=== PATIENT | female | born 1940 | race Caucasian/White ===

== ENCOUNTER → 2016-08-20 | Outpatient (CLI) | payer MEDICARE, OTHER ==
[~2016-08-20] MED LIST: ACET-2469 PO; CEFU500T PO; CEPH250T PO; CLIN-62 PO; CLIN150C17 PO; FLC100T1 PO; HYDR-3874 PO; L.AC1CAP6 PO; LEVO500T69 PO; LVT.088T PO
--- NOTE | 2016-08-21 20:23 | Diagnostic Imaging Report ---
Left breast mammogram. The current study was also evaluated with a Computer Aided Detection (CAD) system. COMPARISON: 06/20/2015. INDICATION: Screening. The patient has had breast cancer status post mastectomy on the right side. FINDINGS: The left breast parenchyma is heterogeneously dense with associated scattered benign-appearing calcifications. No developing mass, architectural distortion, or suspicious cluster of calcification. Allowing for technique and positional differences, no suspicious change is seen. IMPRESSION: No significant change. ACR BI-RADS Category 2: Benign findings. Result letter will be mailed to the patient. Note: At least 10% of breast cancer is not imaged by mammography. Dictated by: Dictated on workstation # [id number]
== END ==
LOC: RAD 12:18
PROVIDERS: ATTEND Nurse Practitioner Family
DX: Z12.31 Encounter for screening mammogram for malignant neoplasm of breast (principal)

== ENCOUNTER 2016-11-22 10:17 | Outpatient (RCR) | payer MEDICARE, OTHER ==
[2016-11-21 14:24] LABS: MEAN PLATELET VOLUME 10.5 FL (7.4-10.4); RED BLOOD COUNT 4.42 10^6/uL (4.35-5.85); RED CELL DISTRIBUTION WIDTH 13.3 % (10.0-14.5); WHITE BLOOD COUNT 5.4 10^3/uL (4.3-11.0)
[2016-11-21 14:50] LABS: ALBUMIN 4.5 G/DL (3.2-4.5); BILIRUBIN,TOTAL 0.3 MG/DL (0.1-1.0); CALCIUM 9.1 MG/DL (8.5-10.1); CREATININE SERUM 1.27 MG/DL (0.60-1.30); POTASSIUM 4.2 MMOL/L (3.6-5.0); TOTAL PROTEIN 7.6 G/DL (6.4-8.2)
--- NOTE | 2016-11-21 16:40 | Diagnostic Imaging Report ---
PROCEDURE: CT abdomen and pelvis without contrast. TECHNIQUE: Multiple contiguous axial images were obtained through the abdomen and pelvis without the use of intravenous contrast. INDICATION: Abdominal pain. COMPARISON: No priors. FINDINGS: The lung bases are nonacute. The unopacified liver, gallbladder, bile ducts are unremarkable. Nonfocal spleen is normal in size. Low-density nodule measures fluid density and is presumed cyst, medially oriented, upper pole left kidney, 1.6 cm. There are no opaque kidney stones. There is no hydronephrosis. No perinephric edema. The adrenals and pancreas are unremarkable. The aorta is nonaneurysmal. The appendix is normal. There are noninflamed diverticuli of the sigmoid colon. There is no bowel, biliary or urinary tract obstruction. There is no ascites, abscess, hematoma or other fluid collection. No anterior-abdominal wall defect or fluid collection. There is no focal inflammatory process or ascites. IMPRESSION: Noninflamed diverticulosis, left renal cortical cyst. No acute-appearing abdominal-pelvic abnormality. Dictated by: Dictated on workstation # [id number]
== END 2017-02-19 | disposition home or self-care (01) ==
LOC: RAD 10:17
PROVIDERS: ATTEND Nurse Practitioner
DX: K57.30 Diverticulosis of large intestine without perforation or abscess without bleeding (principal); N28.1 Cyst of kidney, acquired
CPT/HCPCS: 36415; 74176; 80053; 82565; 84520; 85027; 87045; 87046

== ENCOUNTER → 2017-08-26 | Outpatient (CLI) | payer MEDICARE, OTHER ==
[~2017-08-26] MED LIST changes: +HYDR-3870 PO; -HYDR-3874 PO
--- NOTE | 2017-08-26 18:53 | Diagnostic Imaging Report ---
INDICATION: Routine screening. COMPARISON: Comparison is made with prior study from 08/20/2016 and 06/20/2015. The current study was also evaluated with a Computer Aided Detection (CAD) system. FINDINGS: Moderate parenchymal heterogeneity and increased density is noted, limiting the sensitivity of mammography. The parenchymal pattern appears stable. No dominant mass or malignant appearing microcalcifications are seen. There are benign calcifications in the left breast. The left axilla is unremarkable. IMPRESSION: No mammographic features suspicious for malignancy are identified. ACR BI-RADS Category 2: Benign findings. Result letter will be mailed to the patient. Note: At least 10% of breast cancer is not imaged by mammography. Dictated by: Dictated on workstation # [id number]
== END ==
LOC: RAD 12:16
PROVIDERS: ATTEND Nurse Practitioner Family
DX: Z12.31 Encounter for screening mammogram for malignant neoplasm of breast (principal)

== ENCOUNTER → 2018-06-11 | Outpatient (CLI) | payer MEDICARE, OTHER ==
--- NOTE | 2018-06-11 09:46 | Diagnostic Imaging Report ---
PROCEDURE: CT cervical spine without contrast. TECHNIQUE: Multiple contiguous axial images were obtained through the cervical spine without the use of intravenous contrast. Sagittal and coronal reformations were then performed. INDICATION: Palpable nodule of one year's duration posteriorly on the right. Pain radiating down the right shoulder. History of breast cancer. FINDINGS: Noncontrast enhanced CT of the cervical spine performed. Surface marker is placed in the right neck at the region of palpable fullness. Deep to the palpable abnormality is a fatty nodule compatible with incidental lipoma in the right neck posteriorly measuring 3.3 cm transverse x 2.1 cm AP and extending a cephalocaudal length of 3.8 cm. It is encapsulated, simple and showed no soft tissue component or complexity. Reconstruction views revealed normal cervical body heights aligned anatomically. No bony destruction, fracture or dislocation. There is no appreciable canal or foraminal stenosis. No paravertebral soft tissue density, mass or fluid collection. Skull base appeared unremarkable. Prevertebral and retropharyngeal spaces are unremarkable. Visualized pulmonary apices show some partly calcified chronic pleural parenchymal scarring and air trapping greater right, chronic. IMPRESSION: Simple lipoma in the right neck corresponds to the palpable nodularity. Cervical spine showed no fracture, malalignment or stenosis. Dictated by: Dictated on workstation # [id number]
== END ==
LOC: RAD 08:56
PROVIDERS: ATTEND Surgery
DX: D17.0 Benign lipomatous neoplasm of skin and subcutaneous tissue of head, face and neck (principal); Z85.3 Personal history of malignant neoplasm of breast
CPT/HCPCS: 72125

== ENCOUNTER 2018-06-25 05:35 | Outpatient (CLI) | payer MEDICARE, OTHER ==
[~2018-06-25] VITALS: Ht 170.2 cm; Wt 73.5 kg
[2018-06-25] MEDS ORDERED: LEVO88TA54 PO (08:44)
[2018-06-25] MEDS ORDERED: HYDR200T78 PO (08:44)
[2018-06-25] MEDS ORDERED: TERB250T16 PO (08:44)
== END 2018-06-25 08:50 | disposition home or self-care (01) ==
LOC: PREOP 05:35
PROVIDERS: ATTEND Surgery
DX: Z01.818 Encounter for other preprocedural examination (principal)
CPT/HCPCS: 87081

== ENCOUNTER 2018-07-02 06:00 | Day surgery (SDC) | payer MEDICARE, OTHER ==
[~2018-07-02] VITALS: Ht 170.2 cm; Wt 73.5 kg
[~2018-07-02 06:00] MED LIST changes: +HYDR200T78 PO; +LEVO88TA54 PO; +TERB250T16 PO
[2018-07-02] MEDS ORDERED: LACTATED RINGERS 1,000 ML IV PRN (06:14)
[2018-07-02] MEDS ORDERED: CLINDAMYCIN 600 MG/50 ML IVPB 50 ML IV ONE (06:15)
[2018-07-02 06:20] VITALS: BP 144/78
[2018-07-02] MEDS ORDERED: fentaNYL INJECTION 100 MCG/2 ML AMP ONE (06:45)
[2018-07-02] MEDS ORDERED: MIDAZOLAM 2 MG/2 ML (VERSED) VIAL ONE (06:45)
[2018-07-02] MEDS ORDERED: LIDOCAINE PF 2% 5 ML (XYLOCAINE) VIAL ONE (06:45)
[2018-07-02] MEDS ORDERED: SEVOFLURANE (ULTANE) 15 ML INHAL SOLN ONE ×2 (06:45→08:28)
[2018-07-02] MEDS ORDERED: DEXAMETHASONE 10 MG/ML (DECADRON) 1 ML VIAL ONE (06:45)
[2018-07-02] MEDS ORDERED: ONDANSETRON 4 MG/2 ML (SDV) Z0FRAN ONE ×2 (06:45→09:10)
[2018-07-02] MEDS ORDERED: proPOfol 200 MG/20 ML (DIPRIVAN) VIAL IV ONE (06:45)
[2018-07-02] MEDS ORDERED: LIDOCAINE 1% INJ 20 ML 20 ML VIAL ONE (07:22)
[2018-07-02] MEDS ORDERED: BUPIVACAINE 0.5% 30 ML (SENSORCAINE) VIAL ONE (07:22)
--- NOTE | 2018-07-02 07:59 | Progress Note-Pre Operative ---
Pre-Operative Progress Note H&P Reviewed The H&P was reviewed, patient examined and no changes noted. Date Seen by Provider: Jul 02, 2018 Time Seen by Provider: 07:58 Date H&P Reviewed: Jul 02, 2018 Time H&P Reviewed: 07:58 Pre-Operative Diagnosis: lipoma upper back DARIO AVILA DO Jul 02, 2018 07:59
--- NOTE | 2018-07-02 08:25 | Progress Note-Post Operative ---
Post-Operative Progess Note Surgeon (s)/Rehanger (s) Surgeon DARIO AVILA DO Rehanger: na Pre-Operative Diagnosis lipoma upper back Post-Operative Diagnosis same Procedure & Operative Findings Date of Procedure 07/02/18 Procedure Performed/Findings excision lipoma right upper back Anesthesia Type gen Estimated Blood Loss Estimated blood loss (mL): min Specimens/Packing Specimens Removed lipoma DARIO AVILA DO Jul 02, 2018 08:25
[2018-07-02] MEDS ORDERED: ACHD5005 PO (08:26)
--- NOTE | 2018-07-02 08:27 | Discharge Inst-Simple/Standard ---
Discharge Inst-Standard Discharge Medications New, Converted or Re-Newed RX: RX on Chart Patient Instructions/Follow Up Plan of Care/Instructions/FU: 2 weeks Claire Activity as Tolerated: No Discharge Diet: Regular Diet Other Inst to Patient Follow up Appt: Make appointment for 2 week. Instructions: No lifting greater than 10 pounds. No strenuous activity. May shower in 24 hours, no tub bath or soaking. Use incentive spirometer at home as directed. No Smoking Skin/Wound Care: You have special glue over incision it will fall off on its own. Symptoms to Report: Appetite Changes, Extremity Discoloration, Numbness/Tingling, Swelling Increased , Bleeding Excessive, Eyesight Changes, Pain Increased, Urine Color Change, Constipation(Persistent), Fever over 101 degree F, Pain/Pressure in chest, Urinating Difficulty, Cough Up/Vomit Blood, Heart Beat Irreg/Pounding, Pain/ Pressure in jaw, Vaginal Bleeding Increase, Cramps in feet or legs, Lightheadedness, Pain/Pressure in shoulder, Diarrhea(Persistent), Memory Changes Suddenly, Questions/Concerns, Weight gain consecutive days, Dizziness/ Fainting, Nausea/Vomiting, Shortness of Breath, Weight gain over 2 pounds If questions or concerns contact your physician Or seek help at emergency department. DARIO CLAIRE DO Jul 02, 2018 08:27
[2018-07-02] MEDS ORDERED: morphine INJ 10 MG/ML 1ML (SYR OR VIAL) IVP ONE (09:00)
[2018-07-02] MEDS ORDERED: ONDANSETRON 4 MG/2 ML (SDV) Z0FRAN IVP PRN (09:00)
[2018-07-02 09:30] VITALS: BP 144/78
[2018-07-02 09:31] VITALS: BP 125/64
[2018-07-02 10:00] VITALS: BP 123/54
[2018-07-02 10:30] VITALS: BP 130/59
--- NOTE | 2018-07-02 12:09 | Anesthesia-General Post-Op ---
General Patient Condition Mental Status/LOC: Same as Preop Cardiovascular: Satisfactory Nausea/Vomiting: Absent Respiratory: Satisfactory Pain: Controlled Complications: Absent Post Op Complications Complications None Follow Up Care/Instructions Patient Instructions None needed. Anesthesia/Patient Condition Patient Condition Patient is doing well, no complaints, stable vital signs, no apparent adverse anesthesia problems. No complications reported per nursing. [place] [facility] [place] Yes ARYAN ROSALES CRNA Jul 02, 2018 12:09
--- NOTE | 2018-07-02 13:24 | OPERATIVE REPORT ---
DATE OF SERVICE: 07/02/2018 PREOPERATIVE DIAGNOSIS: Lipoma, upper back. POSTOPERATIVE DIAGNOSIS: Lipoma, upper back. PROCEDURE: Excision of lipoma, right upper back, 4 cm incision. SURGEON: Dario Claire DO. ANESTHESIA: General. ESTIMATED BLOOD LOSS: Minimal. COMPLICATIONS: None. INDICATIONS: The patient is a 78-year-old female with lipoma of the right upper back and lower neck area. She understands the risks and benefits of the procedure and wished to proceed with procedure. Consent was signed on the chart. DESCRIPTION OF PROCEDURE: The patient was taken to the operating suite. She was prepped and draped in a sterile fashion. Surgical pause was performed. Local anesthetic was infiltrated in the area. A 15-blade scalpel was used to make a skin incision. Cautery was used to dissect down through the subcutaneous tissues and the lipoma was encountered. This was evacuated. The wound was then irrigated with copious amounts of irrigation. The skin was then closed using a 4-0 Vicryl in a running subcuticular fashion. The area was then washed and dried and Skin Affix was placed over the incision. The patient tolerated the procedure well without any complications. She was taken to the recovery room in stable condition. Job ID: [id number] DocumentID: [id number] Dictated Date: 07/02/2018 08:36:46 Colorectal Surgeon Date: 07/02/2018 13:23:49 Dictated By: DARIO CLAIRE DO
== END 2018-07-02 10:40 | disposition home or self-care (01) ==
LOC: SDC 06:00
PROVIDERS: ATTEND Surgery
DX: D17.1 Benign lipomatous neoplasm of skin and subcutaneous tissue of trunk (principal); E03.9 Hypothyroidism, unspecified; G57.93 Unspecified mononeuropathy of bilateral lower limbs; Z87.891 Personal history of nicotine dependence; Z79.899 Other long term (current) drug therapy

== ENCOUNTER → 2018-08-19 | Outpatient (CLI) | payer MEDICARE, OTHER ==
[~2018-08-19] MED LIST changes: +ACHD5005 PO
--- NOTE | 2018-08-19 15:37 | Diagnostic Imaging Report ---
EXAMINATION: Supine abdomen at 02:41 a.m. INDICATION: Abdominal pain. FINDINGS: The CT abdomen/pelvis exam of 11/21/2016 failed to show any sign of nephrolithiasis or urolithiasis. On this exam, there is still evidence for calcification overlying the kidneys or the expected path of the ureters. There are few small calcific densities on each side of the low pelvis. I suspect that these are phleboliths, as they were present on the prior CT exam. However, if there is clinical concern regarding ureteral stones, then repeat CT abdomen/pelvis exam should be obtained. There is gas in both the large and small bowel in a nonspecific fashion. There is no evidence for bowel obstruction. There is a fair amount of fecal material throughout the colon. There is no mass or organomegaly noted. The osseous structures are intact. IMPRESSION: 1. There is no evidence for nephrolithiasis or urolithiasis. 2. The calcifications on each side of the low pelvis are more likely due to phleboliths than to ureteral stones. Recommendations as above. Dictated by: Dictated on workstation # [id number]
== END ==
LOC: RAD 14:32
PROVIDERS: ATTEND Nurse Practitioner Family
DX: N28.89 Other specified disorders of kidney and ureter (principal); R10.31 Right lower quadrant pain
CPT/HCPCS: 74018

== ENCOUNTER → 2018-09-01 | Outpatient (CLI) | payer MEDICARE, OTHER ==
--- NOTE | 2018-09-01 22:00 | Diagnostic Imaging Report ---
INDICATION: Routine screening. Comparison is made with prior mammogram from 08/26/2017 and 08/20/2016. 2-D and 3-D unilateral left screening mammography was performed with a Computer Aided Detection (CAD) system. FINDINGS: Left breast is heterogeneously dense, limiting the sensitivity of mammography. The parenchymal pattern is stable. No mass or malignant appearing microcalcifications are seen. There are benign parenchymal and vascular calcifications noted. Left axilla is unremarkable. IMPRESSION: No mammographic features suspicious for malignancy are identified. ACR BI-RADS Category 2: Benign findings. Result letter will be mailed to the patient. Note: At least 10% of breast cancer is not imaged by mammography. Dictated by: Dictated on workstation # [id number]
== END ==
LOC: RAD 08:28
PROVIDERS: ATTEND Nurse Practitioner Family
DX: Z12.31 Encounter for screening mammogram for malignant neoplasm of breast (principal)

== ENCOUNTER → 2019-05-27 | Outpatient (CLI) | payer MEDICARE, OTHER ==
[~2019-05-27] MED LIST changes: -ACET-2469 PO; +ACET-2715 PO; +PANT40TA2 PO; +PRD20T PO
--- NOTE | 2019-05-27 16:56 | Diagnostic Imaging Report ---
INDICATION: Bilateral hand pain. AP, oblique, and lateral views of both hands are obtained. No fracture or acute bony abnormality is seen. There is mild degenerative change throughout the interphalangeal joints. There is moderate degenerative change of the first carpometacarpal joint on both sides. There is mild degenerative change of the radiocarpal joint on both sides. There is mild degenerative change of the first MCP joint on both sides. IMPRESSION: Degenerative findings of both hands as above with no acute abnormality. Dictated by: Dictated on workstation # [id number]
== END ==
LOC: RAD 12:19
PROVIDERS: ATTEND Internal Medicine Rheumatology
DX: M19.042 Primary osteoarthritis, left hand (principal); M19.041 Primary osteoarthritis, right hand

== ENCOUNTER 2019-07-27 09:53 | Emergency (ER) | payer MEDICARE, OTHER ==
[~2019-07-27] VITALS: Ht 170.1 cm; Wt 72.7 kg
[~2019-07-27 09:53] MED LIST changes: -PANT40TA2 PO; -PRD20T PO
[2019-07-27 10:35] VITALS: BP 142/78
[2019-07-27] MEDS ORDERED: SALIVA SUBSTITUTE 60 ML SPRAY(MOUTHKOTE) MM PRN (11:00)
[2019-07-27] MEDS ORDERED: KETOROLAC 30 MG/ML VIAL IVP ONE (11:00)
--- NOTE | 2019-07-27 11:05 | ED General ---
General Chief Complaint: General Problems/Pain Stated Complaint: WEAKNESS;L ARM/R SHOULDER PAIN;DRY MOUTH Nursing Triage Note: TO ED PER W/C REPORTS SINCE FRIDAY HAS HAS L ELBOW PAIN R KNEE AND L AND R GROIN PAIN NO INJURY. TOOK TYLENOL LAST NIGHT. Nursing Sepsis Screen: No Definite Risk Source of Information: Patient Exam Limitations: No Limitations History of Present Illness Date Seen by Provider: Jul 27, 2019 Time Seen by Provider: 11:00 Initial Comments To ER with left elbow pain, right knee pain, bilateral groin pain and right shoulder pain. The symptoms began about 2-3 days ago. She was recently diagnosed with RA by [employer] commerce consultant with the satellite [facility] here in [place], however, has not started any medication for this. She also complains of a very dry mouth. She denies fevers chills cough sore throat runny nose. Timing/Duration: 1-2 Days Severity: Moderate Allergies and Home Medications Allergies Coded Allergies: Penicillins (Verified Allergy, Unknown, ANAPHYLAXIS, 06/25/18) sulfamethoxazole (Verified Allergy, Unknown, 04/13/15) trimethoprim (Verified Allergy, Unknown, 04/13/15) Home Medications Acetaminophen/Diphenhydramine 1 Each Tablet, 1 EACH PO HS, (Reported) Hydrocodone Bit/Acetaminophen 1 Tab Tab, 1 TAB PO Q4-6HR Prescribed by: DARIO AVILA on 07/02/18 0826 Hydroxychloroquine Sulfate 200 Mg Tablet, 200 MG PO DAILY, (Reported) Levothyroxine Sodium 88 Mcg Tablet, 88 MCG PO DAILY, (Reported) Terbinafine HCl 250 Mg Tablet, 250 MG PO DAILY, (Reported) Patient Home Medication List Home Medication List Reviewed: Yes Review of Systems Review of Systems Constitutional: see HPI; No chills, No fever EENTM: see HPI, other (dry mouth) Respiratory: no symptoms reported Genitourinary: no symptoms reported Musculoskeletal: see HPI, joint pain Skin: no symptoms reported Psychiatric/Neurological: No Symptoms Reported Hematologic/Lymphatic: No Symptoms Reported Past Gtjtgyx-Ebofxd-Zrlblj Hx Patient Social History Alcohol Use: Denies Use Recreational Drug Use: No Smoking Status: Never a Smoker Former Smoker, Quit: Jul 26, 1988 2nd Hand Smoke Exposure: No Recent Foreign Travel: No Contact w/Someone Who Travel: No Recent Infectious Disease Expo: No Recent Hopitalizations: No Immunizations Up To Date Tetanus Booster (TDap): Unknown PED Vaccines UTD: No Date of Influenza Vaccine: Mar 23, 2018 Seasonal Allergies Seasonal Allergies: No Past Medical History Surgeries: Yes (mastectomy, ) Oophorectomy, Tubal Ligation Respiratory: No Cardiac: No Neurological: No Reproductive Disorders: No Sexually Transmitted Disease: No HIV/AIDS: No Genitourinary: No UTI-Chronic Gastrointestinal: Yes Diverticulosis Musculoskeletal: Yes Rheumatoid Arthritis Endocrine: Yes Hypothyroidsim HEENT: No Cancer: Yes Breast What Type of Treatment Did You: Surgical Intervention Psychosocial: No Integumentary: Yes (ROSACIA) Blood Disorders: No Family Medical History No Pertinent Family Hx Physical Exam Vital Signs Vital Signs - First Documented 07/27/19 10:35 Temp 36.8 Pulse 70 Resp 18 B/P (MAP) 142/78 (99) Pulse Ox 97 Capillary Refill : Less Than 3 Seconds Height, Weight, BMI Height: 5'7.00" Weight: 162lbs. 0.0oz. 73.699337hv; 25.00 BMI Method:Stated General Appearance: No Apparent Distress, WD/WN Eyes: Bilateral Eye Normal Inspection, Bilateral Eye PERRL, Bilateral Eye EOMI HEENT: PERRL/EOMI, TMs Normal Neck: Full Range of Motion, Normal Inspection Respiratory: No Accessory Muscle Use, No Respiratory Distress Gastrointestinal: Non Tender, Soft Extremity: Normal Capillary Refill, Normal Inspection, Other (no joint effusion to any of the affected joints. no erythema or warmth. ) Neurologic/Psychiatric: Alert, Oriented x3 Skin: Normal Color, Warm/Dry Progress/Results/Core Measures Suspected Sepsis Recent Fever Within 48 Hours: No Infection Criteria Present: None New/Unexplained Altered Menta: No Sepsis Screen: No Definite Risk SIRS Temperature: Pulse: 70 Respiratory Rate: 18 Laboratory Tests 07/27/19 11:15: White Blood Count 7.6 Blood Pressure 142 /78 Mean: 99 Laboratory Tests 07/27/19 11:15: Creatinine 0.91, Platelet Count 206 Results/Orders Lab Results Laboratory Tests Test 07/27/19 11:15 Range/Units White Blood Count 7.6 4.3-11.0 10^3/uL Red Blood Count 4.35 4.35-5.85 10^6/uL Hemoglobin 13.1 11.5-16.0 G/DL Hematocrit 41 35-52 % Mean Corpuscular Volume 93 80-99 FL Mean Corpuscular Hemoglobin 30 25-34 PG Mean Corpuscular Hemoglobin Concent 32 32-36 G/DL Red Cell Distribution Width 13.6 10.0-14.5 % Platelet Count 206 130-400 10^3/uL Mean Platelet Volume 10.3 7.4-10.4 FL Neutrophils (%) (Auto) 80 H 42-75 % Lymphocytes (%) (Auto) 11 L 12-44 % Monocytes (%) (Auto) 8 0-12 % Eosinophils (%) (Auto) 1 0-10 % Basophils (%) (Auto) 0 0-10 % Neutrophils # (Auto) 6.1 1.8-7.8 X 10^3 Lymphocytes # (Auto) 0.9 L 1.0-4.0 X 10^3 Monocytes # (Auto) 0.6 0.0-1.0 X 10^3 Eosinophils # (Auto) 0.1 0.0-0.3 10^3/uL Basophils # (Auto) 0.0 0.0-0.1 10^3/uL Erythrocyte Sedimentation Rate 30 0-30 MM/HR Sodium Level 139 135-145 MMOL/L Potassium Level 4.4 3.6-5.0 MMOL/L Chloride Level 106 98-107 MMOL/L Carbon Dioxide Level 24 21-32 MMOL/L Anion Gap 9 5-14 MMOL/L Blood Urea Nitrogen 11 7-18 MG/DL Creatinine 0.91 0.60-1.30 MG/DL Estimat Glomerular Filtration Rate 60 BUN/Creatinine Ratio 12 Glucose Level 108 H 70-105 MG/DL Calcium Level 9.1 8.5-10.1 MG/DL C-Reactive Protein High Sensitivity 6.58 H 0.00-0.50 MG/DL My Orders Orders - MADELYN DOUGHERTY APRN Cbc With Automated Diff (07/27/19 10:55) Basic Metabolic Panel (07/27/19 10:55) Erythrocyte Sedimentation Rate (07/27/19 10:55) Hs C Reactive Protein (07/27/19 10:55) Ed Iv/Invasive Line Start (07/27/19 10:55) Ketorolac Injection (Toradol Injection) (07/27/19 11:00) Saliva Substitute (Mouthkote Solution) (07/27/19 11:00) Saliva Stimulant Mouth [place] (Biotene Mo (07/27/19 11:15) Medications Given in ED Current Medications Medications Dose Ordered Sig/Jimmy Route Start Time Stop Time Status Last Admin Dose Admin Ketorolac Tromethamine 15 mg ONCE ONCE IVP 07/27/19 11:00 07/27/19 11:01 DC 07/27/19 11:18 15 MG Saliva Substitute SPRAY DIRECTLY IN MO... NEEDED PRN MM 07/27/19 11:15 07/27/19 11:18 1 EACH Vital Signs/I&O 07/27/19 07/27/19 10:35 11:18 Temp 36.8 36.8 Pulse 70 Resp 18 B/P (MAP) 142/78 (99) Pulse Ox 97 Capillary Refill : Less Than 3 Seconds Blood Pressure Mean: 99 Departure Communication (Admissions) handwritten rx for steroid taper and protonix Impression Primary Impression: Polyarthralgia Disposition: HOME, SELF-CARE Condition: Stable Departure-Patient Inst. Decision time for Depature: 11:30 Referrals: JESSE DURAN MD (PCP/Family) Primary Care Physician Patient Instructions: ARTHRALGIA Add. Discharge Instructions: 1. Steroids as directed 2. Return to ER for any concerns 3. Follow-up with your doctor next week All discharge instructions reviewed with patient and/or family. Voiced understanding. Scripts Pantoprazole Sodium (Protonix) 40 Mg Tablet.dr 40 MG PO DAILY, #10 TAB Prov: MADELYN DOUGHERTY APRN 07/27/19 Prednisone (Prednisone) 20 Mg Tab 20 MG PO DAILY, #11 TAB Take 3 tabs(60mg)daily, decrease by 1/2 tab(10mg)daily. Prov: MADELYN DOUGHERTY APRN 07/27/19 Copy Copies To 1: JESSE DURAN MD, PETER J APRN Jul 27, 2019 11:05
[2019-07-27] MEDS ORDERED: KETOROLAC 30 MG/ML VIAL ONE (11:06)
[2019-07-27] MEDS ORDERED: SALIVA STIMULANT MOUTH SPRAY (BIOTENE) 1.5 OZ MM PRN (11:15)
[2019-07-27 11:29] LABS: BASOPHILS % (AUTO) 0 % (0-10); EOSINOPHILS # (AUTO) 0.1 10^3/uL (0.0-0.3); EOSINOPHILS % (AUTO) 1 % (0-10); HEMATOCRIT 41 % (35-52); HEMOGLOBIN 13.1 G/DL (11.5-16.0); LYMPHOCYTES # (AUTO) 0.9 X 10^3 (1.0-4.0); LYMPHOCYTES % (AUTO) 11 % (12-44); MEAN CORPUSCULAR HEMOGLOBIN 30 PG (25-34); MEAN CORPUSCULAR HGB CONC 32 G/DL (32-36); MEAN CORPUSCULAR VOLUME 93 FL (80-99); MEAN PLATELET VOLUME 10.3 FL (7.4-10.4); MONOCYTES # (AUTO) 0.6 X 10^3 (0.0-1.0); MONOCYTES % (AUTO) 8 % (0-12); NEUTROPHILS # (AUTO) 6.1 X 10^3 (1.8-7.8); NEUTROPHILS % (AUTO) 80 % (42-75); PLATELET COUNT 206 10^3/uL (130-400); RED CELL DISTRIBUTION WIDTH 13.6 % (10.0-14.5); WHITE BLOOD COUNT 7.6 10^3/uL (4.3-11.0)
[2019-07-27 11:52] LABS: CALCIUM 9.1 MG/DL (8.5-10.1); CREATININE SERUM 0.91 MG/DL (0.60-1.30); POTASSIUM 4.4 MMOL/L (3.6-5.0)
[2019-07-27 11:54] LABS: ERYTHROCYTE SEDIMENTATION RATE 30 MM/HR (0-30)
[2019-07-27] MEDS ORDERED: PRD20T PO (11:57)
[2019-07-27] MEDS ORDERED: PANT40TA2 PO (11:57)
== END 2019-07-27 12:05 | disposition home or self-care (01) ==
LOC: EDUNIT# 09:53 → ER 09:55
DX: M25.50 Pain in unspecified joint (principal); M06.9 Rheumatoid arthritis, unspecified; E03.9 Hypothyroidism, unspecified; Z85.3 Personal history of malignant neoplasm of breast; Z88.0 Allergy status to penicillin; Z88.2 Allergy status to sulfonamides; Z88.1 Allergy status to other antibiotic agents; Z87.891 Personal history of nicotine dependence
CPT/HCPCS: 36415; 80048; 85025; 85652; 86141

== ENCOUNTER → 2019-09-06 | Outpatient (CLI) | payer MEDICARE, OTHER ==
[~2019-09-06] MED LIST changes: +PANT40TA2 PO; +PRD20T PO
--- NOTE | 2019-09-07 13:43 | Diagnostic Imaging Report ---
INDICATION: Routine screening. COMPARISON: 09/01/2018 and 08/26/2017. TECHNIQUE: Unilateral left 2D and 3D screening mammography was performed with CAD. FINDINGS: The left breast remains heterogeneously dense, limiting the sensitivity of mammography. A circumscribed nodular density in the upper anterior left breast in the outer portion appears to be stable. There are benign calcifications in the left breast. No spiculated mass or malignant appearing microcalcifications are seen. The left axilla is unremarkable. IMPRESSION: No mammographic features suspicious for malignancy are identified. ACR BI-RADS Category 2: Benign findings. Result letter will be mailed to the patient. Note: At least 10% of breast cancer is not imaged by mammography. Dictated by: Dictated on workstation # [id number]
== END ==
LOC: RAD 14:26
PROVIDERS: ATTEND Nurse Practitioner Family
DX: Z12.31 Encounter for screening mammogram for malignant neoplasm of breast (principal)

== ENCOUNTER → 2020-09-06 | Outpatient (CLI) | payer MEDICARE, OTHER ==
[~2020-09-06] MED LIST changes: -ACET-2715 PO; +ACET-3075 PO; -CLIN150C17 PO; +CLIN150C18 PO
--- NOTE | 2020-09-06 16:02 | Diagnostic Imaging Report ---
INDICATION: Routine screening. COMPARISON: 09/06/2019 and 09/01/2018. TECHNIQUE: 2D and 3D unilateral left screening mammography was performed with CAD. FINDINGS: The left breast is heterogeneously dense, limiting the sensitivity of mammography. No mass or malignant appearing microcalcifications are seen. There are benign calcifications in the left breast. The left axilla is unremarkable. IMPRESSION: No mammographic features suspicious for malignancy are identified. ACR BI-RADS Category 2: Benign findings. Result letter will be mailed to the patient. Note: At least 10% of breast cancer is not imaged by mammography. Dictated by: Dictated on workstation # [id number]
== END ==
LOC: RAD 10:15
PROVIDERS: ATTEND Nurse Practitioner Family
DX: Z12.31 Encounter for screening mammogram for malignant neoplasm of breast (principal)
CPT/HCPCS: 77063

== ENCOUNTER 2020-12-19 10:09 | Outpatient (RCR) | payer MEDICARE | END 2021-01-10 15:39 | disposition home or self-care (01) | PROVIDERS: ATTEND Internal Medicine Rheumatology | DX: M25.511 Pain in right shoulder (principal) ==

== ENCOUNTER 2021-02-06 05:34 | Outpatient (CLI) | payer MEDICARE ==
[~2021-02-06] VITALS: Ht 170.2 cm; Wt 65.3 kg
[2021-02-06] MEDS ORDERED: METH2.5T PO (12:51)
[2021-02-06] MEDS ORDERED: L.AC1CAP6 PO (12:51)
[2021-02-06] MEDS ORDERED: C,E,1CAP PO (12:51)
== END 2021-02-06 14:23 | disposition home or self-care (01) ==
LOC: PREOP 05:34
PROVIDERS: ATTEND Surgery
DX: Z01.818 Encounter for other preprocedural examination (principal)

== ENCOUNTER 2021-02-13 07:25 | Day surgery (SDC) | payer MEDICARE ==
[~2021-02-13] VITALS: Ht 170.2 cm; Wt 65.3 kg
[~2021-02-13 07:25] MED LIST changes: +C,E,1CAP PO; +METH2.5T PO
[2021-02-13] MEDS ORDERED: GLYCOPYRROLATE 0.2 MG/ML (ROBINUL) 2 ML VIAL IJ ONE (07:26)
[2021-02-13] MEDS ORDERED: LACTATED RINGERS 1,000 ML IV STA (07:35)
[2021-02-13 07:40] VITALS: BP 128/86
[2021-02-13] MEDS ORDERED: PROPOFOL INJECTION 50 ML IV ONE (08:35)
[2021-02-13 09:10] VITALS: BP 102/58
[2021-02-13 09:15] VITALS: BP 113/58
--- NOTE | 2021-02-13 09:15 | Progress Note-Post Operative ---
Post-Operative Progess Note Surgeon (s)/Protective Signal Superintendent (s) Surgeon DARIO AVILA DO Protective Signal Superintendent: na Pre-Operative Diagnosis hx colon cancer, blood in stool Post-Operative Diagnosis Hepatic flexure diveritculi, sigmoid polyp, hemrroids. Procedure & Operative Findings Date of Procedure 02/13/21 Procedure Performed/Findings hepatic flexure cold bx, next to diverticuli. sigmoid hot bx/ polypectomy. Anesthesia Type per yard spotter Estimated Blood Loss Estimated blood loss (mL): scant Specimens/Packing Specimens Removed hepatic flexure, sigmoid polyp DARIO AVILA DO Feb 13, 2021 09:15
--- NOTE | 2021-02-13 09:21 | Anesthesia-General Post-Op ---
MAC Patient Condition Mental Status/LOC: Same as Preop Cardiovascular: Satisfactory Nausea/Vomiting: Absent Respiratory: Satisfactory Pain: Controlled Complications: Absent Post Op Complications Complications None Follow Up Care/Instructions Patient Instructions None needed. Anesthesiology Discharge Order Discharge Order Patient is doing well, no complaints, stable vital signs, no apparent adverse anesthesia problems. No complications reported per nursing. JOSE MANRIQUEZ CRNA Feb 13, 2021 09:21
--- NOTE | 2021-02-13 09:31 | Discharge Inst-Simple/Standard ---
Discharge Inst-Standard Patient Instructions/Follow Up Plan of Care/Instructions/FU: 2 weeks Alethea Activity as Tolerated: Yes Discharge Diet: Regular Diet (high fiber) DARIO AVILA DO Feb 13, 2021 09:31
[2021-02-13 09:45] VITALS: BP 110/79
[2021-02-13 10:00] VITALS: BP 110/79
--- NOTE | 2021-02-13 13:26 | OPERATIVE REPORT ---
DATE OF SERVICE: 02/13/2021 PREOPERATIVE DIAGNOSIS: History of colon cancer, blood in stool. POSTOPERATIVE DIAGNOSES: Hepatic flexure, diverticuli, sigmoid colon polyp and hemorrhoids. PROCEDURE: Colonoscopy hepatic flexure cold biopsy next to diverticuli, sigmoid hot biopsy polypectomy. SURGEON: Dario Claire DO ANESTHESIA: Per SWISS TYPE SCREW MACHINE OPERATOR. ESTIMATED BLOOD LOSS: Scant. COMPLICATIONS: None. INDICATIONS: The patient is an 81-year-old female who has a history of colon cancer. She is having some blood in her stools. She understands risks and benefits of procedure and wished to proceed with procedure. Consent was signed in the chart. DESCRIPTION OF PROCEDURE: The patient was taken to the endoscopy suite, placed in left lateral recumbent position. Timeout was performed. Digital rectal exam was performed noting some internal hemorrhoids. No palpable polyps, masses or ulcerations. Scope was inserted in the rectum, advanced all the way to cecum with minimal difficulty. Prep was adequate with irrigation and suction. Scope was then slowly retracted back. No polyps, masses or ulcerations within the cecum. Pandiverticulosis present. Scope was then slowly retracted back in the ascending colon. No polyps, masses or ulcerations. At the hepatic flexure, there was a diverticula with some irritation, which looked like a small ulceration. Maybe some recent bleeding. Biopsy of this area was obtained. A cold biopsy of the area was obtained. Scope was then slowly retracted back. No polyps, masses or ulcerations within the remainder of the transverse and descending colon. In the sigmoid colon, a small polyp was present, which hot biopsy polypectomy was performed. Scope was then continuously retracted back into the rectum where it was retroflexed noting the internal hemorrhoids. Scope was returned to its normal position, slowly withdrawn until completely removed. The patient tolerated procedure well without any complications. She was taken to recovery room in stable condition. RECOMMENDATIONS: The patient will follow up on pathology in 2 weeks. If any issues before that be seen at that time. I would recommend repeat colonoscopy on as needed basis. Job ID: [id number] DocumentID: [id number] Dictated Date: 02/13/2021 09:33:58 Print Operator Date: 02/13/2021 13:24:48 Dictated By: DARIO CLAIRE DO
== END 2021-02-13 10:00 | disposition home or self-care (01) ==
LOC: ENDO 07:25
PROVIDERS: ATTEND Surgery
DX: D12.5 Benign neoplasm of sigmoid colon (principal); K57.31 Diverticulosis of large intestine without perforation or abscess with bleeding; K64.8 Other hemorrhoids; K52.89 Other specified noninfective gastroenteritis and colitis; M06.9 Rheumatoid arthritis, unspecified; E07.9 Disorder of thyroid, unspecified; Z85.038 Personal history of other malignant neoplasm of large intestine; Z79.899 Other long term (current) drug therapy; Z79.890 Hormone replacement therapy; Z87.891 Personal history of nicotine dependence
CPT/HCPCS: 88305

== ENCOUNTER → 2021-05-14 | Outpatient (CLI) | payer MEDICARE ==
[~2021-05-14] MED LIST changes: -CLIN150C18 PO; +CLIN150C20 PO; -TERB250T16 PO; +TERB250T88 PO
[2021-05-14 12:49] LABS: HEMATOCRIT 43 % (35-52); HEMOGLOBIN 14.1 g/dL (11.5-16.0); MEAN CORPUSCULAR HEMOGLOBIN 33 pg (25-34); MEAN CORPUSCULAR HGB CONC 33 g/dL (32-36); MEAN CORPUSCULAR VOLUME 101 fL (80-99); MEAN PLATELET VOLUME 10.6 fL (9.0-12.2); PLATELET COUNT 141 10^3/uL (130-400); WHITE BLOOD COUNT 7.9 10^3/uL (4.3-11.0)
--- NOTE | 2021-05-14 13:02 | Diagnostic Imaging Report ---
INDICATION: Right elbow pain COMPARISON: None. FINDINGS: 3 views of the right elbow show no fractures, dislocations, or other acute bony abnormalities identified. Joint spaces are well maintained throughout. The soft tissues appear unremarkable. No radiopaque foreign bodies are identified. IMPRESSION: No acute fractures or dislocations of the right elbow. Dictated by: Dictated on workstation # [id number]
[2021-05-14 13:09] LABS: CALCIUM 9.4 MG/DL (8.5-10.1); CREATININE SERUM 1.01 MG/DL (0.60-1.30); POTASSIUM 5.5 MMOL/L (3.6-5.0); URIC ACID 5.5 MG/DL (2.6-7.2)
== END ==
LOC: RAD 12:26
PROVIDERS: ATTEND Nurse Practitioner Family
DX: M25.521 Pain in right elbow (principal)
CPT/HCPCS: 36415; 73080; 80048; 84550; 85027

== ENCOUNTER → 2021-05-22 | Outpatient (CLI) | payer MEDICARE ==
[2021-05-22 12:40] LABS: CALCIUM 9.1 MG/DL (8.5-10.1)
[2021-05-22 12:44] LABS: CREATININE SERUM 0.94 MG/DL (0.60-1.30)
== END ==
LOC: LAB 12:10
PROVIDERS: ATTEND Family Medicine
DX: E87.5 Hyperkalemia (principal)
CPT/HCPCS: 36415; 80048

== ENCOUNTER 2021-07-19 16:38 | Inpatient (IN) | payer MEDICARE ==
[~2021-07-19] VITALS: Ht 170 cm; Wt 65.8 kg
[2021-07-19] MEDS ORDERED: fentaNYL INJ 100 MCG/2 ML AMP ONE (16:55)
[2021-07-19] MEDS ORDERED: MIDAZOLAM 5 MG/5 ML (VERSED) VIAL ONE (16:55)
[2021-07-19] MEDS ORDERED: LIDOCAINE 1% INJ 20 ML VIAL ONE (16:56)
[2021-07-19] MEDS ORDERED: NITRO DRIP 25000 MCG/D5W 0 ML IV ONE (16:56)
[2021-07-19] MEDS ORDERED: HEParin 1000 UNIT/ML (10ML VIAL) FOR BOLUS ONE (16:56)
[2021-07-19] MEDS ORDERED: NS IV 1000 ML 1,000 ML ONE (16:56)
[2021-07-19] MEDS ORDERED: HEParin (CATH LAB) 2,000 ML IV ONE (16:56)
[2021-07-19 17:00] LABS: BASOPHILS % (AUTO) 0 % (0-10); EOSINOPHILS # (AUTO) 0.1 10^3/uL (0.0-0.3); EOSINOPHILS % (AUTO) 1 % (0-10); HEMATOCRIT 43 % (35-52); LYMPHOCYTES # (AUTO) 1.4 10^3/uL (1.0-4.0); LYMPHOCYTES % (AUTO) 13 % (12-44); MEAN CORPUSCULAR HEMOGLOBIN 33 pg (25-34); MEAN CORPUSCULAR HGB CONC 33 g/dL (32-36); MEAN CORPUSCULAR VOLUME 100 fL (80-99); MEAN PLATELET VOLUME 9.7 fL (9.0-12.2); MONOCYTES # (AUTO) 0.7 10^3/uL (0.0-1.0); MONOCYTES % (AUTO) 7 % (0-12); NEUTROPHILS % (AUTO) 78 % (42-75); PLATELET COUNT 250 10^3/uL (130-400); WHITE BLOOD COUNT 10.3 10^3/uL (4.3-11.0)
[2021-07-19] MEDS ORDERED: ASPIRIN 81 MG CHEW (CHILDREN'S ASA) PO ONE (17:00)
--- NOTE | 2021-07-19 17:05 | ED Chest Pain ---
General Stated Complaint: STEMI Source: patient, EMS Exam Limitations: no limitations History of Present Illness Date Seen by Provider: Jul 19, 2021 Time Seen by Provider: 16:46 Initial Comments Here by EMS with report of chest heaviness as well as arm heaviness that started approximately 45 minutes to 1 hour ago. EMS was summoned. EMS did give aspirin 324 mg p.o. as well as 1 nitroglycerin and Zofran 4 mg IV. She did have some nausea associated with this but denies sweating or breathing problems. She is currently being treated for urinary tract infection. She follows with Dr. Huang. Timing/Duration: 1 hour Severity/Quality: moderate, pressure Location: central Radiation: arms, shoulders Activities at Onset: none Prior CP/Workup: no prior chest pain ASA po CYLINDER BATCHER: Yes NTG SL CYLINDER BATCHER: Yes Associated Symptoms: No abdominal pain, No diaphoresis, No dizziness; nausea/vomiting; No shortness of breath; weakness Allergies and Home Medications Allergies Coded Allergies: Penicillins (Verified Allergy, Severe, ANAPHYLAXIS, 02/13/21) sulfamethoxazole (Verified Allergy, Unknown, 04/13/15) trimethoprim (Verified Allergy, Unknown, 04/13/15) Patient Home Medication List Home Medication List Reviewed: Yes C,E,Zinc,Copper 11/Ketab9t/Lut (Ocuvite Adult 50 Plus Softgel) 1 Each Capsule, 1 EACH PO DAILY, (Reported) Entered as Reported by: ILIANA BORDEN on 02/06/21 1251 L.acidoph & Paracasei,B.lactis (Probiotic) 1 Each Capsule, 1 EACH PO DAILY, (Reported) Entered as Reported by: ILIANA BORDEN on 02/06/21 1251 Levothyroxine Sodium (Levothyroxine Sodium) 88 Mcg Tablet, 88 MCG PO DAILY, (Reported) Entered as Reported by: SWAPNIL RAMOS on 06/25/18 0844 Methotrexate Sodium (Methotrexate) 2.5 Mg Tablet, 2.5 MG PO WEEK, (Reported) Entered as Reported by: ILIANA BORDEN on 02/06/21 1251 Review of Systems Review of Systems Constitutional: No chills, No fever EENTM: No Nose Congestion, No Throat Pain Respiratory: Denies Cough, Denies Shortness of Air Cardiovascular: Chest Pain; Denies Edema Gastrointestinal: Nausea; Denies Vomiting Genitourinary: See HPI; Denies Hematuria, Denies Pain Musculoskeletal: No joint pain, No neck pain Skin: No change in color, No lesions Psychiatric/Neurological: Denies Headache; Weakness All Other Systems Reviewed Negative Unless Noted: Yes Past Bskcfew-Doxqsj-Cpkmcr Hx Patient Social History Tobacco Use?: No Substance use?: No Alcohol Use?: No Immunizations Up To Date Tetanus Booster (TDap): Unknown PED Vaccines UTD: No First/Initial COVID19 Vaccinat: YES Second COVID19 Vaccination Juan: YES Seasonal Allergies Seasonal Allergies: No Past Medical History Surgeries: Yes (mastectomy) Breast, Oophorectomy, Tubal Ligation Respiratory: No Cardiac: No Neurological: No Reproductive Disorders: No Sexually Transmitted Disease: No HIV/AIDS: No Genitourinary: No UTI-Chronic Gastrointestinal: Yes Diverticulosis Musculoskeletal: Yes Rheumatoid Arthritis Endocrine: Yes Hypothyroidsim HEENT: No Cancer: Yes Breast What Type of Treatment Did You: Surgical Intervention Psychosocial: No Integumentary: Yes (ROSACIA) Blood Disorders: No Family Medical History Reviewed Nursing Family Hx No Pertinent Family Hx Physical Exam Vital Signs Capillary Refill : Height, Weight, BMI Height: 5'7.00" Weight: 162lbs. 0.0oz. [id number]; 22.54 BMI Method:Stated General Appearance: No Apparent Distress, WD/WN HEENT: PERRL/EOMI, Pharynx Normal Neck: Non Tender, Supple Respiratory: Lungs Clear, Normal Breath Sounds Cardiovascular: Regular Rate, Rhythm, No Murmur Gastrointestinal: Non Tender, Soft Extremity: Normal Range of Motion, Non Tender Neurologic/Psychiatric: Alert, Oriented x3 Skin: Normal Color, Warm/Dry Progress/Results/Core Measures Results/Orders Lab Results Laboratory Tests Test 07/19/21 16:50 Range/Units My Orders Orders - BERNY FISHER MD Ekg Tracing (07/19/21 16:45) Progress Progress Note : Progress Note Seen and evaluated on arrival by EMS. EMS did give aspirin, nitro and Zofran. Labs, EKG ordered. EKG consistent with acute IN. 9: I did discuss the case with Dr. Anderson notifying him of the STEMI. 1652: Dr. Anderson in the emergency department evaluating. I have discussed the case with him. I did inform the patient as well as her daughter regarding the findings and patient will go to the Record Press Supervisor. 1657: Record Press Supervisor team in the room. 1700: Patient to Record Press Supervisor for emergent heart catheterization. Catheterization discussed with patient and family who agree to heart catheterization. Initial ECG Impression Date: Jul 19, 2021 Initial ECG Impression Time: 16:46 Initial ECG Rate: 66 Initial ECG Rhythm: Normal Sinus Initial ECG Impression: Acute IN Comment Sinus rhythm with inferior posterior infarct acute. Rightward axis. ST elevation noted in 2, 3, aVF and V3 through V5 with ST depression noted in V1 and V2 as well as aVL. Findings consistent with acute IN. Cardiology notified and agrees. Departure Communication (Admissions) Time/Spoke to Admitting Phy: 16:49 Impression Primary Impression: Acute myocardial infarction Qualified Codes: I21.11 - ST elevation (STEMI) myocardial infarction involving right coronary artery Disposition: ADMITTED INPATIENT Condition: Critical Admissions Decision to Admit Reason: Admit from ER (General) Decision to Admit/Date: Jul 19, 2021 Time/Decision to Admit Time: 16:49 Departure-Patient Inst. Referrals: JESSE HUANG MD (PCP/Family) Primary Care Physician BERNY FISHER MD Jul 19, 2021 17:05
[2021-07-19 17:13] LABS: INR 0.9 (0.8-1.4); PROTHROMBIN TIME PATIENT 12.7 SEC (12.2-14.7)
[2021-07-19 17:15] LABS: ALBUMIN 3.9 GM/DL (3.2-4.5); POTASSIUM 4.3 MMOL/L (3.6-5.0)
[2021-07-19 17:16] LABS: CALCIUM 9.1 MG/DL (8.5-10.1)
[2021-07-19 17:17] LABS: TOTAL PROTEIN 7.3 GM/DL (6.4-8.2)
[2021-07-19 17:19] LABS: BILIRUBIN,TOTAL 0.3 MG/DL (0.1-1.0)
[2021-07-19 17:21] LABS: CREATININE SERUM 1.02 MG/DL (0.60-1.30)
[2021-07-19 17:24] LABS: MAGNESIUM 2.1 MG/DL (1.6-2.4)
[2021-07-19] MEDS ORDERED: PATIENT MAY USE OWN MEDS, ALL PO SCH (17:30)
--- NOTE | 2021-07-19 17:34 | Cardiology History & Physical ---
HPI-Cardiology Cardiology Consultation Date of Consultation 07/19/21 Date of Admission Time Seen by Provider: 16:50 Indication: Acute myocardial infarction HPI 81 years old lady with history of rheumatoid arthritis, hypothyroidism, started to have chest pain dull in nature in the retrosternal area, came in by ambulance to the emergency room and noted to have acute ST elevation myocardial infarction in the inferior wall. I was called for evaluation and she was still having active pain. No shortness of breath. No similar episodes in the past. We decided to proceed with emergency cardiac catheterization. PMH-Cardiology Immunizations Up To Date Tetanus Booster (DTap): Unknown Date of Influenza Vaccine: Mar 23, 2018 Seasonal Allergies Seasonal Allergies: No Surgeries Yes (mastectomy) Mastectomy, Tubal Ligation, Oophorectomy Respiratory No Cardiovascular No Neurological No Reproductive System Hx Reproductive Disorders: No Sexually Transmitted Disease: No HIV/AIDS: No Genitourinary No UTI-Chronic Gastrointestinal Yes Diverticulosis Musculoskeletal Yes Rheumatoid Arthritis Endocrine Yes Hypothyroidsim HEENT No Cancer Yes Breast Type of Treatment: Surgical Intervention Psychosocial No Integumentary Yes (ROSACIA) Blood Transfusions No Other PMHx Rheumatoid arthritis Hypothyroid Social History Patient Social History Employed/Student: employed Smoking: Never smoker Dip or chew tobacco?: No Have you traveled recently?: No Alcohol Use?: No Family Hx Significant Family History: No Pertinent Family Hx Other Noncontributory ROS-Cardiology Review of Systems General: No Chills, No Night Sweats, No Fatigue, No Malaise, No Appetite HEENT: No Head Aches, No Visual Changes, No Eye Pain, No Ear Pain, No Dysphasia, No Sinus Congestion, No Post Nasal Drip, No Sore Throat Pulmonary: No Dyspnea, No Cough, No Pleuritic Chest Pain Cardiovascular: Chest Pain; No: Palpitations, Orthopnea, Paroxysmal Noc. Dyspnea, Edema, Lt Headedness Gastrointestinal: No: Nausea, Vomiting, Abdominal Pain, Diarrhea, Constipation, Melena, Hematochezia Genitourinary: No Dysuria, No Frequency, No Incontinence, No Hematuria, No Retention Musculoskeletal: No: neck pain, shoulder pain, arm pain, back pain, hand pain, leg pain, foot pain Neurological: No: Weakness, Numbness, Incoordination, Change in speech, Confusion, Seizures Home Medications & Allergies Allergies: Coded Allergies: Penicillins (Verified Allergy, Severe, ANAPHYLAXIS, 02/13/21) sulfamethoxazole (Verified Allergy, Unknown, 04/13/15) trimethoprim (Verified Allergy, Unknown, 04/13/15) Home Medication List Reviewed: Yes Exam-Cardiology Vital Signs Vital Signs Date Time Temp Pulse Resp B/P (MAP) Pulse Ox O2 Delivery O2 Flow Rate FiO2 07/19/21 17:00 145/72 07/19/21 16:40 70 18 100 Room Air Exam General Appearance: Alert, Oriented X3, Cooperative, No Acute Distress HEENT: Atraumatic, PERRLA Respiratory: Clear to Auscultation, Normal Air Movement Cardiovascular: Regular Rate, Normal S1, Normal S2, No Murmurs Abdominal: Normal Bowel Sounds, Soft, No Tenderness, No Hepatosplenomegaly, No Masses Extremities: No Clubbing, No Cyanosis, No Edema, Normal Pulses, No Tenderness/Swelling Skin: No Rashes, No Breakdown, No Significant Lesion Neuro: Normal Gait, Normal Speech, Strength at 5/5 X4 Ext, Normal Tone, Sensation Intact Psych/Mental Status: Mental Status NL, Mood NL Results Labs Labs Laboratory Tests 07/19/21 16:50: White Blood Count 10.3, Red Blood Count 4.28, Hemoglobin 14.0, Hematocrit 43, Mean Corpuscular Volume 100H, Mean Corpuscular Hemoglobin 33, Mean Corpuscular Hemoglobin Concent 33, Red Cell Distribution Width 13.8, Platelet Count 250, Mean Platelet Volume 9.7, Immature Granulocyte % (Auto) 0, Neutrophils (%) (Auto) 78H, Lymphocytes (%) (Auto) 13, Monocytes (%) (Auto) 7, Eosinophils (%) (Auto) 1, Basophils (%) (Auto) 0, Neutrophils # (Auto) 8.0H, Lymphocytes # (Auto) 1.4, Monocytes # (Auto) 0.7, Eosinophils # (Auto) 0.1, Basophils # (Auto) 0.0, Immature Granulocyte # (Auto) 0.0, Prothrombin Time 12.7, INR Comment 0.9, Activated Partial Thromboplast Time 28, Sodium Level 139, Potassium Level 4.3, Chloride Level 103, Carbon Dioxide Level 23, Anion Gap 13, Blood Urea Nitrogen 16, Creatinine 1.02, Estimat Glomerular Filtration Rate 56, BUN/Creatinine Ratio 16, Glucose Level 136H, Calcium Level 9.1, Corrected Calcium 9.2, Magnesium Level 2.1, Total Bilirubin 0.3, Aspartate Amino Transf (AST/SGOT) 20, Alanine Aminotransferase (ALT/SGPT) 13, Alkaline Phosphatase 66, Total Protein 7.3, Albumin 3.9 A/P-Cardiology Admission Diagnosis Acute myocardial infarction, ST elevation in the inferior wall Coronary artery disease Bradycardia Hyperlipidemia Admission Status: Inpatient Order (span 2 midnights) Reason for Inpatient Admission: Acute inferior wall myocardial infarction Assessment/Plan Acute ST elevation myocardial infarction in the inferior wall status post emergency cardiac catheterization with stenting to the right coronary artery door to balloon time was 32 minutes with excellent results Coronary artery disease, cardiac catheterization done on 07/19/2021, mild disease in the left system, total occlusion of the right coronary artery successful emergency stenting using alejandra point stent 3.5 x 23 mm expanded to 3.69 mm with excellent results, started on aspirin and Brilinta Status post transient bradycardia during cardiac catheterization resolved spontaneously, accelerated idioventricular rhythm, reperfusion arrhythmia given 1 dose of amiodarone 150 mg. Hyperlipidemia, started on Lipitor 80 mg daily empirically Rheumatoid arthritis, has been on methotrexate and prednisone for her joint pain Hypothyroidism, managed by primary care physician Patient was started on PPI for GI protection Clinical Quality Measures AMI/AHF: ASA po Prior to arrival: Yes NAA KIMBROUGH MD Jul 19, 2021 17:34
--- NOTE | 2021-07-19 17:35 | Conscious Sedation/ASA ---
Conscious Sedation Pre-Proced Time 16:50 ASA Score 3 For ASA 3 and 4: Consider anesthesia and medical clearance. Also, for patients with a history of failed moderate sedation consider anesthesia. Airway Lungs Heart ASA score ASA 1: a normal healthy patient ASA 2: a patient with a mild systemic disease (mid diabetes, controlled hypertension, obesity x ASA 3: a patient with a severe systemic disease that limits activity (angina, COPD, prior Myocardial infarction) ASA 4: a patient with an incapacitating disease that is a constant threat to life (CHF, renal failure) ASA 5: a moribund patient not expected to survive 24 hrs. (ruptured aneurysm) ASA 6: a declared brain- patient whose organs are being harvested. For emergent operations, add the letter E after the classification Mallampati Classification Grade 3 Sedation Plan Analgesia, Amnesia, Plan communicated to team members, Discussed options with patient/fam, Discussed risks with patient/fam The patient is an appropriate candidate to undergo the planned procedure, sedation, and anesthesia. The patient immediately re-assessed prior to indication. NAA KIMBROUGH MD Jul 19, 2021 17:35
[2021-07-19] MEDS ORDERED: TICAGRELOR 90 MG TABLET (BRILINTA) PO ONE (17:37)
--- NOTE | 2021-07-19 17:40 | Cardiac Cath Report ---
Cardiac Cath Report Physician (s)/Herb Doctor (s) Physician NAA KIMBROUGH MD Pre-Procedure Diagnosis Pre-Procedure Diagnosis: Coronary artery disease Post-Procedure Note Procedure Start Date: Jul 19, 2021 Name of Procedure: Left heart catheterization Left ventriculogram Emergency stenting to the right coronary artery Findings/Procedure Note PROCEDURE NOTE: 81 years old lady with no significant past medical history admitted with acute ST elevation myocardial infarction in the inferior wall. After explaining the procedure to the patient, all pros and cons were explained, all questions were answered. The patient signed the consent and then she was placed on the cardiac catheterization laboratory. Groin was prepped SL fashion local anesthesia was used. Sheath placed in the right femoral artery. Yeison right and left catheter were used to access the coronary system. Pigtail was used to access the left ventricular cavity. Left ventriculogram was done Yeison right guide with sideholes was advanced to the right coronary artery, patient has total occlusion of the right coronary artery, BMW wire was advanced with difficulties and parked distally. Predilatation with 2.5 x 20 mm balloon was done then deployment of skypoint stent 3.5 x 23 mm expanded to 3.69 mm with excellent results. No residual stenosis was noted. Door to balloon time and establishment of flow was 32 minutes. After establishment of flow patient had multiple episode of accelerated idioventricular rhythm alternating with sinus bradycardia. I gave her amiodarone 150 mg IV after persistent episode of accelerated idioventricular rhythm which helped and limiting those episodes. Mainly reperfusion arrhythmia. At the end of the procedure the sheath was removed. Closure device was deployed. FINDINGS: Hemodynamics LV 125/15, end-diastolic pressure of 15 Aorta 111/39 mean of 65 ANATOMY: Left Main is free of obstructive disease Left Anterior Descending has mild disease nonobstructive disease Left Circumflex has mild disease nonobstructive disease Right Coronary Artery is dominant artery with total occlusion proximally, successful emergency angioplasty and stenting using skypoint stent 3.5 x 23 mm expanded to 3.69 mm with excellent results LV Gram was done showing normal left ventricular size with normal contractility estimate ejection fraction 60% CONCLUSION: 1. Acute ST elevation myocardial infarction in the inferior wall with emergency cardiac catheterization and stenting of the right coronary artery door to establish normal flow was 32 minutes 2. Total occlusion of the right coronary artery with successful stenting using skypoint stent 3.5 x 23 mm expanded to 3.69 mm with excellent results 3. Otherwise mild coronary artery disease nonobstructive disease 4. Normal left ventricular size and systolic function estimate ejection fraction 60% DISCUSSION AND RECOMMENDATION: Patient was started on aspirin and Brilinta in addition to Lipitor 80 mg daily. Toprol 25 mg daily. Anesthesia Type: Conscious Sedation Estimated blood loss (mL): 15 ml Contrast Amount: 40 ml Total Radiation Dose: 205 mGy Post-Procedure Diagnosis Post-operative diagnosis: Acute ST elevation myocardial infarction Coronary artery disease Transient bradycardia Hyperlipidemia NAA KIMBROUGH MD Jul 19, 2021 17:40
[2021-07-19] MEDS: NS IV 1000 ML 1,000 ML IV SCH (18:00)
[2021-07-19] MEDS ORDERED: AMIODARONE (BOLUS) 150 MG/3 ML IV ONE (18:38)
[2021-07-19] MEDS ORDERED: NS 1000 ML IV BAG IV ONE (18:38)
[2021-07-19] MEDS: TICAGRELOR 90 MG TABLET (BRILINTA) PO SCH (22:47)
[2021-07-20 04:53] LABS: HEMATOCRIT 41 % (35-52); HEMOGLOBIN 13.2 g/dL (11.5-16.0); MEAN CORPUSCULAR HEMOGLOBIN 32 pg (25-34); MEAN CORPUSCULAR HGB CONC 33 g/dL (32-36); MEAN CORPUSCULAR VOLUME 99 fL (80-99); MEAN PLATELET VOLUME 9.7 fL (9.0-12.2); PLATELET COUNT 222 10^3/uL (130-400); WHITE BLOOD COUNT 10.5 10^3/uL (4.3-11.0)
[2021-07-20 05:32] LABS: POTASSIUM 4.3 MMOL/L (3.6-5.0)
[2021-07-20 05:33] LABS: CALCIUM 8.8 MG/DL (8.5-10.1)
[2021-07-20 05:37] LABS: CREATININE SERUM 0.89 MG/DL (0.60-1.30)
[2021-07-20 06:20] LABS: PHOSPHORUS 3.1 MG/DL (2.3-4.7)
[2021-07-20 06:22] LABS: MAGNESIUM 2.2 MG/DL (1.6-2.4)
[2021-07-20] MEDS: NS IV 1000 ML 1,000 ML IV SCH (06:28)
--- NOTE | 2021-07-20 08:45 | Cardiology Progress Note ---
Subjective Date Seen by Provider: Jul 20, 2021 Time Seen by Provider: 08:38 Subjective/Events-last exam Patient is laying down in bed, feeling well, denied any chest pain Review of Systems General: No Chills, No Night Sweats, No Fatigue, No Malaise, No Appetite, No Other HEENT: No Head Aches, No Visual Changes, No Eye Pain, No Ear Pain, No Dysphasia, No Sinus Congestion, No Post Nasal Drip, No Sore Throat, No Other Pulmonary: No Dyspnea, No Cough, No Pleuritic Chest Pain, No Other Cardiovascular: No: Chest Pain, Palpitations, Orthopnea, Paroxysmal Noc. Dyspnea, Edema, Lt Headedness, Other Objective-Cardiology Exam Last Set of Vital Signs Vital Signs 07/19/21 07/20/21 20:22 08:00 Temp 36.1 Pulse 58 Resp 10 B/P (MAP) 135/61 Pulse Ox 100 O2 Delivery Room Air I&O Intake and Output 07/20/21 00:00 Intake Total 100 ml Output Total 125 ml Balance -25 ml Intake Oral 100 ml Output Urine Total 125 ml Daily Weight Change Yes, 2-13 lbs General: Alert, Oriented X3, Cooperative, No Acute Distress HEENT: Atraumatic, PERRLA Neck: Supple, No JVD, No Thyromegaly Lungs: Clear to Auscultation, Normal Air Movement Heart: Regular Rate, Normal S1, Normal S2, No Murmurs Abdomen: Normal Bowel Sounds, Soft, No Tenderness, No Hepatosplenomegaly, No Masses Extremities: No Clubbing, No Cyanosis, No Edema, Normal Pulses, No Tenderness/Swelling Skin: No Rashes, No Breakdown, No Significant Lesion Neuro: Normal Gait, Normal Speech, Strength at 5/5 X4 Ext, Normal Tone, Sens ation Intact Psych/Mental Status: Mental Status NL, Mood NL Results Lab Laboratory Tests 07/19/21 16:50 07/20/21 04:27 A/P-Cardiology Admission Diagnosis Acute myocardial infarction, ST elevation in the inferior wall Coronary artery disease Bradycardia Hyperlipidemia Assessment/Plan Acute ST elevation myocardial infarction in the inferior wall status post emergency cardiac catheterization with stenting to the right coronary artery door to balloon time was 32 minutes with excellent results Coronary artery disease, cardiac catheterization done on 07/19/2021, mild disease in the left system, total occlusion of the right coronary artery successful emergency stenting using skypoint stent 3.5 x 23 mm expanded to 3.69 mm with excellent results, started on aspirin and Brilinta Status post transient bradycardia during cardiac catheterization resolved spontaneously, accelerated idioventricular rhythm, reperfusion arrhythmia given 1 dose of amiodarone 150 mg. Hyperlipidemia, started on Lipitor 80 mg daily empirically Rheumatoid arthritis, has been on methotrexate and prednisone for her joint pain Hypothyroidism, managed by primary care physician Patient was started on PPI for GI protection NAA KIMBROUGH MD Jul 20, 2021 08:45
[2021-07-20] MEDS: TICAGRELOR 90 MG TABLET (BRILINTA) PO SCH ×2 (09:05→21:47)
[2021-07-20] MEDS: ASPIRIN E.C. 81 MG (ECOTRIN) TAB PO SCH (09:05)
[2021-07-20] MEDS: PANTOPRAZOLE 40 MG (PROTONIX) TAB PO SCH (09:06)
[2021-07-20] MEDS ORDERED: CEPH500C PO (14:19)
[2021-07-20] MEDS: CEPHALEXIN 250 MG (KEFLEX) CAP PO SCH (21:47)
[2021-07-21] MEDS ORDERED: LEVOTHYROXINE 88 MCG (LEVOTHORID) TAB PO SCH (06:30)
--- NOTE | 2021-07-21 09:49 | Tele-ICU Progress Note ---
Progress Note video rounds completed 81 y/o female with STEMI Overall doing well Followed by cardiology No current issue Focused Exam Height, Weight, BMI Height: 5'7.00" Weight: 162lbs. 0.0oz. [id number]; 22.49 BMI Method:Stated Restraints Restraint Status Physician Progress Note I/We evaluated the patient and attest to the following: * Other interventions were tried and were ineffective or not viable. * The patient's physical and psychological status has been reviewed with staff. * I have discussed the rationale for restraint use with the patient and/or family. * The patient's plan of care and/or treatment plan has been evaluated. * The patient is physically safe in restraints. Early release is permitted if assessment shows patient no longer exhibits same conditions that warranted restraint. Results Results/Procedures Labs Laboratory Tests 07/19/21 16:50 07/20/21 04:27 Patient resulted labs reviewed. NY MENDOZA MD Jul 21, 2021 09:49
[2021-07-21] MEDS ORDERED: TICA90TA PO (09:53)
[2021-07-21] MEDS ORDERED: ASPI-1238 PO (09:53)
[2021-07-21] MEDS ORDERED: METO-351 PO (09:53)
[2021-07-21] MEDS ORDERED: ATOR20TA49 PO (09:53)
[2021-07-21] MEDS ORDERED: PANT40TA52 PO (09:53)
--- NOTE | 2021-07-21 09:53 | Discharge Inst-Post CATH ---
Discharge Inst-CATH/EP Problems Reviewed?: Yes Post Cardiac Cath/EP D/C Inst Follow Up/Plan Appointment with Dr. Anderson's office in 2 weeks <b>CARDIAC CATH/EP PROCEDURE DISCHARGE INSTRUCTIONS</b> ACTIVITY * Go Home directly and rest. * Limit activity of the leg (or wrist if it was used) for 7 days including aerobics, swimming, jogging, bicycling, etc. * Restrict stair-climbing for 7 days if possible, if not, climb up with your non-cath leg, then bring together on the same step. * Avoid lifting, pushing, pulling or excessive movement of the affected extremity for 7 days. * Customary sexual activity may be resumed after 2 days-use caution not to use a position that strains or causes pain to the affected extremity. * No driving for 24 hours. * NO SMOKING. * Avoid straining for bowel movements for 7 days. * Gentle walking on level ground is allowed. * Returning to work will depend on the type of procedure and the results. Your doctor will discuss this with you. CALL YOUR DOCTOR FOR ANY OF THE FOLLOWING: *If bleeding from the puncture site occurs- Apply gentle pressure to site with clean cloth and call your doctor or EMS. * If a knot or lump forms under the skin, increases in size, or causes pain. * If bruising appears to be worsening or moving further down your leg instead of disappearing. * Temperature above 101 F. CARE OF YOUR GROIN INCISION; * Bruising or purple discoloration of the skin near the puncture site is common. * You may shower only, no bathtub bathing for 5 days. Be careful to avoid slipping as your leg may feel stiff. * If a closure device was used on your femoral artery, please see the attached guide regarding care of the device and your leg. * Leave dressing on FOR 24 hours. CARE OF YOUR WRIST INCISION; * Bruising or purple discoloration of the skin near the puncture site is common. * You may shower. * DO NOT submerge wrist. * Leave dressing on FOR 24 hours. NAA ANDERSON MD Jul 21, 2021 09:53
--- NOTE | 2021-07-21 09:57 | Cardiology Discharge Summary ---
Discharge Summary Hospital Course Problems Reviewed?: Yes Hospital Course Date of Admission: Jul 19, 2021 at 18:05 Admission Diagnosis : Family Physician/Provider: Isamar Huang MD Date of Discharge: 07/21/21 Discharge Diagnosis: [Acute ST elevation myocardial infarction in the inferior wall Coronary artery disease Hyperlipidemia Hypothyroidism] Hospital Course: [ Acute ST elevation myocardial infarction in the inferior wall status post emergency cardiac catheterization with stenting to the right coronary artery door to balloon time was 32 minutes with excellent results Coronary artery disease, cardiac catheterization done on 07/19/2021, mild disease in the left system, total occlusion of the right coronary artery successful emergency stenting using skypoint stent 3.5 x 23 mm expanded to 3.69 mm with excellent results, started on aspirin and Brilinta Status post transient bradycardia during cardiac catheterization resolved spontaneously, accelerated idioventricular rhythm, reperfusion arrhythmia given 1 dose of amiodarone 150 mg. Hyperlipidemia, started on Lipitor 80 mg daily empirically, LDL 98, I am dischar ging patient on Lipitor 20 mg daily Rheumatoid arthritis, has been on methotrexate and prednisone for her joint pain Hypothyroidism, managed by primary care physician Patient was started on PPI for GI protection] Labs and Pending Lab Test: Home Meds Active Lipitor (Atorvastatin Calcium) 20 Mg Tablet 20 Mg PO DAILY Toprol Xl (Metoprolol Succinate) 25 Mg Tab.er.24h 25 Mg PO DAILY Pantoprazole Sodium 40 Mg Tablet.dr 40 Mg PO DAILY Aspirin EC (Aspirin) 81 Mg Tablet.dr 81 Mg PO DAILY Brilinta (Ticagrelor) 90 Mg Tablet 90 Mg PO BID Reported Cephalexin 500 Mg Capsule 500 Mg PO TID Ocuvite Adult 50 Plus Softgel (C,E,Zinc,Copper 11/Gprax7i/Lut) 1 Each Capsule 1 Each PO DAILY Methotrexate (Methotrexate Sodium) 2.5 Mg Tablet 2.5 Mg PO WEEK Probiotic (L.acidoph & Paracasei,B.lactis) 1 Each Capsule 1 Each PO DAILY Levothyroxine Sodium 88 Mcg Tablet 88 Mcg PO DAILY Assessment/Pt DC Instructions Arrangement for follow-up as an outpatient Discharge Diet: Low Sodium Diet Activity as Tolerated: Yes Discharge Physical Examination Allergies: Coded Allergies: Penicillins (Verified Allergy, Severe, ANAPHYLAXIS, 07/20/21) PT HAS RECEIVED CEPHALEXIN AND ROCEPHIN IN THE PAST sulfamethoxazole (Verified Allergy, Unknown, 04/13/15) trimethoprim (Verified Allergy, Unknown, 04/13/15) General Appearance: No Apparent Distress, WD/WN HEENT: PERRL/EOMI, TMs Normal, Normal ENT Inspection, Pharynx Normal Respiratory: Chest Non Tender, Lungs Clear, Normal Breath Sounds, No Accessory Muscle Use, No Respiratory Distress Cardiovascular: Regular Rate, Rhythm, No Edema, No Gallop, No JVD, No Murmur, Normal Peripheral Pulses Gastrointestinal: Normal Bowel Sounds, No Organomegaly, No Pulsatile Mass, Non Tender, Soft Extremity: Normal Capillary Refill, Normal Inspection, Normal Range of Motion, Non Tender, No Calf Tenderness, No Pedal Edema Skin: Normal Color, Warm/Dry Neurologic/Psychiatric: Alert, Oriented x3, No Motor/Sensory Deficits, Normal Mood/Affect, medic technician II-XII Norm as Tested Clinical Quality Measures Admission Status Admission Status: Inpatient Order (span 2 midnights) Reason for Inpatient Admission: Acute ST elevation myocardial infarction AMI/AHF: Ejection Fraction: Normal LVSF ASA po Prior to arrival: Yes NAA KIMBROUGH MD Jul 21, 2021 09:57
[2021-07-21] MEDS: TICAGRELOR 90 MG TABLET (BRILINTA) PO SCH (11:32)
[2021-07-21] MEDS: ASPIRIN E.C. 81 MG (ECOTRIN) TAB PO SCH (11:32)
[2021-07-21] MEDS: PANTOPRAZOLE 40 MG (PROTONIX) TAB PO SCH (11:32)
[2021-07-21] MEDS: CEPHALEXIN 250 MG (KEFLEX) CAP PO SCH (11:32)
[2021-07-21 12:00] VITALS: BP 111/60
== END 2021-07-21 18:56 | disposition home or self-care (01) | DRG 247 ==
LOC: EDUNIT# 16:38 → ER 16:40 → SDC 16:58 → ICU 18:05
PROVIDERS: ADMIT Internal Medicine Cardiovascular Disease; ATTEND Internal Medicine Cardiovascular Disease
PROC: 027034Z Dilation of Coronary Artery, One Artery with Drug-eluting Intraluminal Device, Percutaneous Approach (ICD-10-PCS; principal; 2021-07-19)
PROC: 4A023N7 Measurement of Cardiac Sampling and Pressure, Left Heart, Percutaneous Approach (ICD-10-PCS; 2021-07-19)
PROC: B2111ZZ Fluoroscopy of Multiple Coronary Arteries using Low Osmolar Contrast (ICD-10-PCS; 2021-07-19)
PROC: B2151ZZ Fluoroscopy of Left Heart using Low Osmolar Contrast (ICD-10-PCS; 2021-07-19)
DX: I21.11 ST elevation (STEMI) myocardial infarction involving right coronary artery (principal); K57.90 Diverticulosis of intestine, part unspecified, without perforation or abscess without bleeding; M06.9 Rheumatoid arthritis, unspecified; E03.9 Hypothyroidism, unspecified; Z85.3 Personal history of malignant neoplasm of breast; I25.10 Atherosclerotic heart disease of native coronary artery without angina pectoris; R00.1 Bradycardia, unspecified; E78.5 Hyperlipidemia, unspecified
CPT/HCPCS: 36415; 80048; 80053; 80061; 83735; 83874; 83880; 84100; 84484; 85025; 85027; 85347; 85610; 85730; 93005; 93041; 93306; 93458

== ENCOUNTER → 2021-09-18 | Outpatient (CLI) | payer MEDICARE ==
[~2021-09-18] MED LIST changes: +ASPI-1238 PO; +ATOR20TA49 PO; +CEPH500C PO; +METO-351 PO; +PANT40TA52 PO; +TICA90TA PO
--- NOTE | 2021-09-18 15:30 | Diagnostic Imaging Report ---
INDICATION: Routine screening. COMPARISON: 09/06/2020 and 09/06/2019. TECHNIQUE: Unilateral left 2D and 3D screening mammography was performed with CAD. FINDINGS: The left breast is heterogeneously dense, limiting the sensitivity of mammography. The parenchymal pattern is stable. There are benign calcifications in the left breast. No mass or malignant appearing microcalcifications are seen. The left axilla is unremarkable. IMPRESSION: No mammographic features suspicious for malignancy are identified. ACR BI-RADS Category 2: Benign findings. Result letter will be mailed to the patient. Note: At least 10% of breast cancer is not imaged by mammography. Dictated by: Dictated on workstation # [id number]
== END ==
LOC: RAD 12:45
PROVIDERS: ATTEND Nurse Practitioner Family
DX: Z12.31 Encounter for screening mammogram for malignant neoplasm of breast (principal)
CPT/HCPCS: 77063

== ENCOUNTER → 2022-02-07 | Outpatient (CLI) | payer MEDICARE ==
--- NOTE | 2022-02-07 09:32 | Diagnostic Imaging Report ---
INDICATION: RHEUMATOID ARTHRITIS MULTIPLE JOINTS bilateral foot pain COMPARISON: None. FINDINGS: Multiple radiographic views of the bilateral feet were obtained and show no fractures, dislocations, or other acute bony abnormalities. No erosive osseous lesions are seen. Joint spaces are well maintained throughout. The soft tissues appear unremarkable. No unexpected radiopaque foreign bodies are identified. IMPRESSION: Unremarkable radiographic exam of the bilateral feet. Dictated by: Dictated on workstation # [id number]
--- NOTE | 2022-02-07 09:32 | Diagnostic Imaging Report ---
INDICATION: Elbow pain. History of rheumatoid arthritis. COMPARISON: None. FINDINGS: Multiple radiographic views of the bilateral elbows were obtained and show no fractures, dislocations, or other acute bony abnormalities. No osteolytic lesions are seen. Joint spaces are well maintained throughout. The soft tissues appear unremarkable. No unexpected radiopaque foreign bodies are identified. IMPRESSION: Unremarkable radiographic exam of the bilateral elbows. Dictated by: Dictated on workstation # [id number]
--- NOTE | 2022-02-07 09:34 | Diagnostic Imaging Report ---
INDICATION: RHEUMATOID ARTHRITIS MULTIPLE JOINTS bilateral hand pain COMPARISON: None. FINDINGS: Multiple radiographic views of the bilateral hands were obtained and show no fractures, dislocations, or other acute bony abnormalities. No suspicious osteolytic lesions are seen. Joint spaces are well maintained throughout. The soft tissues appear unremarkable. No unexpected radiopaque foreign bodies are identified. IMPRESSION: Unremarkable radiographic exam of the bilateral hands. Dictated by: Dictated on workstation # [id number]
--- NOTE | 2022-02-07 09:35 | Diagnostic Imaging Report ---
INDICATION: RHEUMATOID ARTHRITIS MULTIPLE JOINTS bilateral knee pain, left greater than right. COMPARISON: None. FINDINGS: Multiple radiographic views of the bilateral knees were obtained and show no fractures, dislocations, or other acute bony abnormalities. No suspicious osteolytic lesions are seen. Joint spaces are well maintained throughout. The soft tissues appear unremarkable. No unexpected radiopaque foreign bodies are identified. IMPRESSION: Unremarkable radiographic exam of the bilateral knees. Dictated by: Dictated on workstation # [id number]
--- NOTE | 2022-02-07 09:36 | Diagnostic Imaging Report ---
INDICATION: History of rheumatoid arthritis. Pain. COMPARISON: None. FINDINGS: AP view of the pelvis and multiple dedicated radiographic views of the bilateral hips were obtained. There is no fracture, dislocation, bone destruction, or radiopaque foreign body. The visualized pelvic osseous structures and the SI joints demonstrate no acute fracture or dislocation. There is no bone destruction or radiopaque foreign body. The surrounding soft tissue structures are unremarkable. IMPRESSION: 1. Unremarkable radiographic exam of the pelvis and bilateral hips. Dictated by: Dictated on workstation # [id number]
== END ==
LOC: RAD 08:26
PROVIDERS: ATTEND Family Medicine
DX: M25.551 Pain in right hip (principal); M25.552 Pain in left hip; M25.561 Pain in right knee; M25.562 Pain in left knee; M06.842 Other specified rheumatoid arthritis, left hand; M06.841 Other specified rheumatoid arthritis, right hand; M06.872 Other specified rheumatoid arthritis, left ankle and foot; M06.871 Other specified rheumatoid arthritis, right ankle and foot; M25.521 Pain in right elbow; M25.522 Pain in left elbow
CPT/HCPCS: 73523

== ENCOUNTER → 2022-02-12 | Outpatient (CLI) | payer MEDICARE ==
--- NOTE | 2022-02-12 14:22 | Diagnostic Imaging Report ---
INDICATION: Postmenopausal screening. COMPARISON: None. FINDINGS: AP Spine L1-L4: [BMD (g/cm2): 1.126] [T-Score: -0.6] [Z-Score: 1.2] [BMD Previous: NA] [BMD % Change: NA] LT Hip Neck: [BMD (g/cm2): 0.790] [T-Score: -1.8] [Z-Score: 0.4] LT Hip Total: [BMD (g/cm2):0.860] [T-Score:-1.2] [Z-Score: 0.9] [BMD Previous: NA] [BMD % Change: NA] RT Hip Neck: [BMD (g/cm2):0.754] [T-Score:-2.0] [Z-Score:0.1] RT Hip Total: [BMD (g/cm2):0.879] [T-score:-1.0] [Z-Score:1.0] [BMD Previous:NA] [BMD % Change:NA] *Indicates significant change from prior examination based on 95% confidence level. World Health Organization criteria for BMD interpretation classify patients as Normal (T-score at or above -1.0), Osteopenic (T-score between -1.0 and -2.5) or Osteoporotic (T-score at or below -2.5). LIMITATIONS AND MODIFICATION: None. FRACTURE RISK (FRAX SCORE): The ten year probability of (%): Major Osteoporotic Fracture: [15.1] Hip Fracture: [4.8] IMPRESSION: 1. Osteopenia (Low bone mass). 2. Baseline examination. 3. See below National Osteoporosis Foundation guidelines on when to potentially initiate pharmacologic therapy. Based on the National Osteoporosis Foundation Guidelines, pharmacologic treatment should be initiated in any of the following, unless clinical conditions suggest otherwise: * Any patient with prior fragility fracture of the hip or vertebrae. A spine fracture indicates 5X risk for subsequent spine fracture and 2X risk for subsequent hip fracture. * Osteoporosis (T-score <-2.5). * Postmenopausal women and men age 50 and older with low bone mass/osteopenia (T-score between -1.0 and -2.5) by DXA and 10-year major osteoporotic fracture greater than 20% or a 10-year probability of hip fracture greater than 3%. These fracture risks are supplied above in the FRAX score, if applicable. * Clinician judgement and/or patient preferences may indicate treatment for people with 10-year fracture probabilities above or below these levels. Dictated by: Dictated on workstation # [id number]
== END ==
LOC: RAD 11:24
PROVIDERS: ATTEND Family Medicine
DX: M85.80 Other specified disorders of bone density and structure, unspecified site (principal); Z78.0 Asymptomatic menopausal state
CPT/HCPCS: 77080

== ENCOUNTER → 2022-05-02 | Outpatient (CLI) | payer MEDICARE ==
--- NOTE | 2022-05-02 13:42 | Diagnostic Imaging Report ---
PROCEDURE: CT abdomen and pelvis without contrast. TECHNIQUE: Multiple contiguous axial images were obtained through the abdomen and pelvis without the use of intravenous contrast. Auto Exposure Controls were utilized during the CT exam to meet ALARA standards for radiation dose reduction. INDICATION: Microhematuria COMPARISON: 11/21/2016 FINDINGS: Right mastectomy is partially visualized. Visualized lung bases are clear. The unenhanced liver and spleen are unremarkable. The adrenal glands are unremarkable. The pancreas is unremarkable. The gallbladder is unremarkable. The right kidney and right ureter are unremarkable. 3.4 cm lobulated hypodensity is noted within the superior pole of the left kidney. Additional ovoid hypodensity is seen within the central aspect. No hydroureteronephrosis. Mild vascular calcifications without aneurysmal dilatation of the abdominal aorta. The urinary bladder is unremarkable. The uterus and adnexal structures are unremarkable for age. Extensive colonic diverticulosis. Mild mural thickening with adjacent inflammatory stranding is noted involving the mid sigmoid colon. The appendix is unremarkable. No bowel obstruction or pneumatosis. No significant adenopathy, free air, or free fluid in abdomen or pelvis. No acute osseous abnormality. IMPRESSION: Age-indeterminate lobulated hypodensities within the left kidney, particularly within the superior pole. Recommend renal ultrasound versus CT of the abdomen with and without contrast using renal mass protocol for further evaluation. Given appearance, this could relate to cysts, including parapelvic cyst, though cystic neoplasm is not excluded. Findings concerning for mild acute diverticulitis involving the mid sigmoid colon without evidence of abscess formation or perforation. Additional findings as above. Report was called to [facility] nurse office of Dr. Schneider by farzana at 12:59p.m. Dictated by: Dictated on workstation # [id number]
== END ==
LOC: RAD 09:03
PROVIDERS: ATTEND Urology
DX: R31.29 Other microscopic hematuria (principal)
CPT/HCPCS: 74176

== ENCOUNTER → 2022-05-07 | Outpatient (CLI) | payer MEDICARE ==
--- NOTE | 2022-05-07 16:35 | Diagnostic Imaging Report ---
PROCEDURE: US Renal Bilateral. TECHNIQUE: Multiple Real-time grayscale images were obtained over the kidneys in various projections bilaterally. INDICATION: Abnormal CT with possible left renal mass. FINDINGS: The right kidney measures 9.2 x 3.7 x 4.3 cm and the left kidney measures 8.7 x 4.7 x 4.3 cm. The right kidney is unremarkable. No mass, calculus, or hydronephrosis is seen. There are cystic-appearing lesions in the mid and upper pole of the left kidney with the largest in the upper pole measuring 3.5 x 2.7 x 4.0 cm. A cystic lesion in the midportion of the left kidney measures 0.8 x 1.8 x 1.4 cm. No solid mass is detected. No calculus or hydronephrosis is detected. The bladder capacity is 380 mL. Bilateral ureteral jets were visualized. IMPRESSION: Left renal cysts accounting for the CT abnormality. No other abnormalities are detected. Dictated by: Dictated on workstation # [id number]
== END ==
LOC: RAD 11:45
PROVIDERS: ATTEND Urology
DX: N28.1 Cyst of kidney, acquired (principal)
CPT/HCPCS: 76770

== ENCOUNTER 2022-05-09 12:44 | Outpatient (RCR) | payer MEDICARE ==
[2022-05-09 12:56] LABS: HEMATOCRIT 39 % (35-52); HEMOGLOBIN 12.7 g/dL (11.5-16.0); MEAN CORPUSCULAR HEMOGLOBIN 33 pg (25-34); MEAN CORPUSCULAR HGB CONC 33 g/dL (32-36); MEAN CORPUSCULAR VOLUME 100 fL (80-99); MEAN PLATELET VOLUME 9.5 fL (9.0-12.2); PLATELET COUNT 202 10^3/uL (130-400); WHITE BLOOD COUNT 9.1 10^3/uL (4.3-11.0)
[2022-05-09 13:04] LABS: ALBUMIN 3.9 GM/DL (3.2-4.5); POTASSIUM 3.9 MMOL/L (3.6-5.0)
[2022-05-09 13:06] LABS: CALCIUM 9.3 MG/DL (8.5-10.1)
[2022-05-09 13:07] LABS: TOTAL PROTEIN 7.4 GM/DL (6.4-8.2)
[2022-05-09 13:09] LABS: BILIRUBIN,TOTAL 0.4 MG/DL (0.1-1.0)
[2022-05-09 13:11] LABS: CREATININE SERUM 1.07 MG/DL (0.60-1.30)
[2022-05-09 13:14] LABS: URIC ACID 5.7 MG/DL (2.6-7.2)
[2022-05-09 13:18] LABS: ERYTHROCYTE SEDIMENTATION RATE 30 MM/HR (0-30)
== END 2022-05-22 | disposition home or self-care (01) ==
LOC: LAB 12:44
PROVIDERS: ATTEND Internal Medicine Rheumatology
DX: M25.50 Pain in unspecified joint (principal); Z79.899 Other long term (current) drug therapy
CPT/HCPCS: 36415; 80053; 84550; 85027; 85652; 86141

== ENCOUNTER 2022-08-06 11:33 | Outpatient (RCR) | payer MEDICARE ==
[2022-08-06 11:52] LABS: BASOPHILS # (AUTO) 0.1 10^3/uL (0.0-0.1); BASOPHILS % (AUTO) 1 % (0-10); EOSINOPHILS # (AUTO) 0.2 10^3/uL (0.0-0.3); EOSINOPHILS % (AUTO) 1 % (0-10); HEMATOCRIT 43 % (35-52); HEMOGLOBIN 13.6 g/dL (11.5-16.0); LYMPHOCYTES # (AUTO) 1.7 10^3/uL (1.0-4.0); LYMPHOCYTES % (AUTO) 15 % (12-44); MEAN CORPUSCULAR HEMOGLOBIN 32 pg (25-34); MEAN CORPUSCULAR HGB CONC 32 g/dL (32-36); MEAN CORPUSCULAR VOLUME 100 fL (80-99); MEAN PLATELET VOLUME 9.9 fL (9.0-12.2); MONOCYTES # (AUTO) 0.8 10^3/uL (0.0-1.0); MONOCYTES % (AUTO) 7 % (0-12); NEUTROPHILS # (AUTO) 8.6 10^3/uL (1.8-7.8); NEUTROPHILS % (AUTO) 75 % (42-75); PLATELET COUNT 193 10^3/uL (130-400); WHITE BLOOD COUNT 11.5 10^3/uL (4.3-11.0)
[2022-08-06 12:06] LABS: ALBUMIN 4.1 GM/DL (3.2-4.5)
[2022-08-06 12:07] LABS: CALCIUM 9.4 MG/DL (8.5-10.1)
[2022-08-06 12:08] LABS: TOTAL PROTEIN 7.5 GM/DL (6.4-8.2)
[2022-08-06 12:10] LABS: BILIRUBIN,TOTAL 0.5 MG/DL (0.1-1.0)
[2022-08-06 12:12] LABS: CREATININE SERUM 1.29 MG/DL (0.60-1.30)
[2022-08-06 12:15] LABS: URIC ACID 5.3 MG/DL (2.6-7.2)
[2022-08-06 12:19] LABS: ERYTHROCYTE SEDIMENTATION RATE 9 MM/HR (0-30)
== END 2022-08-20 | disposition home or self-care (01) ==
LOC: LAB 11:33
PROVIDERS: ATTEND Internal Medicine Rheumatology
DX: M25.50 Pain in unspecified joint (principal); Z79.899 Other long term (current) drug therapy
CPT/HCPCS: 36415; 80053; 84550; 85025; 85652; 86141

== ENCOUNTER → 2022-09-19 | Outpatient (CLI) | payer MEDICARE ==
--- NOTE | 2022-09-19 16:15 | Diagnostic Imaging Report ---
Indication: Routine screening. Comparison is made with prior mammograms from 09/18/2021 and 09/06/2020. 2-D and 3-D unilateral left screening mammography was performed with CAD. Left breast is heterogeneously dense, limiting the sensitivity of mammography. There are scattered benign calcifications. No mass or malignant-appearing microcalcifications are seen. Left axilla is unremarkable. IMPRESSION: BI-RADS Category 2 No mammographic features suspicious for malignancy are identified. ACR BI-RADS Category 2: Benign findings. Result letter will be mailed to the patient. Note: At least 10% of breast cancer is not imaged by mammography. Dictated by: Dictated on workstation # [id number]
== END ==
LOC: RAD 14:03
PROVIDERS: ATTEND Family Medicine
DX: Z12.31 Encounter for screening mammogram for malignant neoplasm of breast (principal)
CPT/HCPCS: 77063

== ENCOUNTER → 2022-11-01 | Outpatient (CLI) | payer MEDICARE ==
--- NOTE | 2022-11-01 10:25 | Diagnostic Imaging Report ---
PROCEDURE: US Gallbladder. INDICATION: Left upper quadrant abdominal pain CORRELATION: Renal ultrasound 05/07/2022, CT abdomen 05/02/2022 TECHNIQUE: Multiple grayscale sonographic images were obtained of the right upper quadrant of the abdomen. FINDINGS: LIVER: There is uniform echotexture within the visualized portions of the liver. The main portal vein is patent and with normal direction of flow. Liver length 13.5 cm. GALLBLADDER: Echogenic gallstones are present. No abnormal gallbladder wall thickening. COMMON BILE DUCT: Nondilated at 0.6 cm. PANCREAS: Visualized portions appearing unremarkable. AORTA/IVC: Not well visualized. RIGHT KIDNEY: 8.4 x 3.3 x 3.7 cm. No hydronephrosis. OTHER: No right upper quadrant ascites. IMPRESSION: 1. Negative appearing right upper quadrant abdominal ultrasound. 2. Cholelithiasis. No sonographic evidence for acute cholecystitis. Dictated by: Dictated on workstation # [id number]
== END ==
LOC: RAD 08:02
PROVIDERS: ATTEND Surgery
DX: K80.20 Calculus of gallbladder without cholecystitis without obstruction (principal); R10.12 Left upper quadrant pain
CPT/HCPCS: 76705

== ENCOUNTER 2022-11-05 11:24 | Outpatient (RCR) | payer MEDICARE ==
[2022-11-05 11:38] LABS: HEMATOCRIT 43 % (35-52); HEMOGLOBIN 13.8 g/dL (11.5-16.0); MEAN CORPUSCULAR HEMOGLOBIN 33 pg (25-34); MEAN CORPUSCULAR HGB CONC 33 g/dL (32-36); MEAN CORPUSCULAR VOLUME 100 fL (80-99); MEAN PLATELET VOLUME 10.1 fL (9.0-12.2); PLATELET COUNT 213 10^3/uL (130-400); WHITE BLOOD COUNT 11.3 10^3/uL (4.3-11.0)
[2022-11-05 11:55] LABS: ALBUMIN 4.3 GM/DL (3.2-4.5); BILIRUBIN,TOTAL 0.4 MG/DL (0.1-1.0); CALCIUM 9.7 MG/DL (8.5-10.1); CREATININE SERUM 1.15 MG/DL (0.60-1.30); POTASSIUM 3.8 MMOL/L (3.6-5.0); TOTAL PROTEIN 7.6 GM/DL (6.4-8.2)
[2022-11-05 12:01] LABS: ERYTHROCYTE SEDIMENTATION RATE 18 MM/HR (0-30)
== END 2022-11-20 | disposition home or self-care (01) ==
LOC: LAB 11:24
PROVIDERS: ATTEND Internal Medicine Rheumatology
DX: M25.50 Pain in unspecified joint (principal); Z79.899 Other long term (current) drug therapy
CPT/HCPCS: 36415; 80053; 85027; 85652; 86141

== ENCOUNTER → 2022-11-05 | Outpatient (CLI) | payer MEDICARE ==
[2022-11-05 11:59] LABS: BILIRUBIN,TOTAL 0.4 MG/DL (0.1-1.0); CALCIUM 9.7 MG/DL (8.5-10.1); CREATININE SERUM 1.15 MG/DL (0.60-1.30); POTASSIUM 3.8 MMOL/L (3.6-5.0); TOTAL PROTEIN 7.6 GM/DL (6.4-8.2)
[2022-11-05 12:00] LABS: ALBUMIN 4.3 GM/DL (3.2-4.5)
== END ==
LOC: LAB 11:26
PROVIDERS: ATTEND Internal Medicine Cardiovascular Disease
DX: E78.2 Mixed hyperlipidemia (principal)
CPT/HCPCS: 36415; 80053; 80061

== ENCOUNTER → 2022-11-13 | Outpatient (CLI) | payer MEDICARE ==
[~2022-11-13] MED LIST changes: +CATHETER FLUSH 10 ML SYR IVP PRN; +REGADENOSON 0.4 MG/5 ML SYR (LEXISCAN) IV ONE
[2022-11-13 09:22] VITALS: BP 153/69
[2022-11-13 09:31] VITALS: BP 153/78
--- NOTE | 2022-11-13 11:59 | Cardiology Stress Test Report ---
Stress Test Report Date of Procedure/Referring: Date of Procedure: November 13, 2022 PCP Jesse Huang MD Admitting Physician Admitting Physician: Attending Physician: Paige Anderson MD Baseline Heart Rate: 57 Baseline Blood Pressure: Blood Pressure Systolic: 153 Blood Pressure Diastolic: 78 Baseline Vitals Vital Signs Date Time Temp Pulse Resp B/P (MAP) Pulse Ox O2 Delivery O2 Flow Rate FiO2 11/13/22 09:22 59 17 153/69 (97) 99 Room Air Baseline EKG: Baseline EKG: NSR Summary After explaining the procedure to the patient, she signed a consent and then brought to the stress nuclear laboratory. Patient received 0.4 mg Lexiscan for stress test, ECG, heart rate and blood pressure were monitored continuously. Resting and stress dose of radio tracer were injected, imaging was acquired and reviewed in short axis, horizontal long axis and vertical long axis views. TID: 1.18 SSS: 3 SDS: 3 EF: 65 Patient tolerated Lexiscan well No ischemia or infarction noted on SPECT images Normal left ventricular size, ejection fraction 65% Copy Copies To 1: JESSE HUANG MD, BASHAR J MD November 13, 2022 11:59
== END ==
LOC: CARD 08:00
PROVIDERS: ATTEND Internal Medicine Cardiovascular Disease
DX: R06.09 Other forms of dyspnea (principal)
CPT/HCPCS: 78452; 93017; A9502

== ENCOUNTER → 2022-11-19 | Outpatient (CLI) | payer MEDICARE ==
[~2022-11-19] MED LIST changes: -CATHETER FLUSH 10 ML SYR IVP PRN; -REGADENOSON 0.4 MG/5 ML SYR (LEXISCAN) IV ONE
== END ==
LOC: CARD 09:36
PROVIDERS: ATTEND Internal Medicine Cardiovascular Disease
DX: I08.0 Rheumatic disorders of both mitral and aortic valves (principal); I10 Essential (primary) hypertension
CPT/HCPCS: 93306

== ENCOUNTER 2022-11-28 06:11 | Outpatient (CLI) | payer MEDICARE ==
[~2022-11-28] VITALS: Ht 170.2 cm; Wt 71.2 kg
[2022-11-28] MEDS ORDERED: NITR50CA PO (17:13)
[2022-11-28] MEDS ORDERED: LEVO50CA4 PO (17:13)
== END 2022-11-29 09:27 | disposition home or self-care (01) ==
LOC: PREOP 06:11
PROVIDERS: ATTEND Surgery
DX: Z01.818 Encounter for other preprocedural examination (principal)

== ENCOUNTER 2022-12-05 07:11 | Day surgery (SDC) | payer MEDICARE ==
[~2022-12-05] VITALS: Ht 170.2 cm; Wt 71.2 kg
[2022-12-05] VITALS (11 sets, daily range): BP systolic 133–177; BP diastolic 56–78
[~2022-12-05 07:11] MED LIST changes: +LEVO50CA4 PO; +NITR50CA PO
[2022-12-05] MEDS ORDERED: CLINDAMYCIN 600 MG/50 ML IVPB 50 ML IV ONE (07:30)
--- NOTE | 2022-12-05 08:00 | Progress Note-Pre Operative ---
Pre-Operative Progress Note Date H&P Reviewed: Dec 05, 2022 Time H&P Reviewed: 08:00 History & Physical: H&P Reviewed, Patient Examed, No changes noted Pre-Operative Diagnosis: cholelithiasis DARIO AVILA DO Dec 05, 2022 08:00
[2022-12-05] MEDS: LACTATED RINGERS 1,000 ML IV PRN ×2 (08:03→10:12)
[2022-12-05] MEDS ORDERED: BUP/EPI 0.25% 1:200,000 (MARCAINE) 30 ML VIAL ONE (08:48)
[2022-12-05] MEDS ORDERED: proPOfol 200 MG/20 ML (DIPRIVAN) VIAL IV ONE (08:57)
[2022-12-05] MEDS ORDERED: ONDANSETRON 4 MG/2 ML (SDV) Z0FRAN ONE ×2 (08:57→13:04)
[2022-12-05] MEDS ORDERED: LIDOCAINE PF 2% 5 ML (XYLOCAINE) VIAL ONE (08:57)
[2022-12-05] MEDS ORDERED: SEVOFLURANE (ULTANE) 15 ML INHAL SOLN ONE ×2 (08:57→10:34)
[2022-12-05] MEDS ORDERED: fentaNYL INJ 100 MCG/2 ML AMP ONE (08:57)
[2022-12-05] MEDS ORDERED: BUP/EPI 0.25% 1:200,000 (MARCAINE) 30 ML VIAL INJ ONE (09:05)
[2022-12-05] MEDS ORDERED: GLYCOPYRROLATE 0.2 MG/ML (ROBINUL) 2 ML VIAL ONE (09:50)
[2022-12-05] MEDS ORDERED: ROCURONIUM 50 MG/5 ML (ZEMURON) VIAL IV ONE (09:59)
[2022-12-05] MEDS ORDERED: IOHEXOL 300 MG/ML 30 ML (OMNIPAQUE 300) VIAL INJ ONE (10:11)
[2022-12-05] MEDS ORDERED: SUGAMMADEX 500 MG/5 ML VIAL (BRIDION) IV ONE (10:34)
[2022-12-05] MEDS ORDERED: KETOROLAC 30 MG/ML VIAL ONE (10:35)
[2022-12-05] MEDS ORDERED: TRM50T PO (10:58)
--- NOTE | 2022-12-05 10:59 | Discharge Inst-Simple/Standard ---
Discharge Inst-Standard Discharge Medications New, Converted or Re-Newed RX: Transmitted to Pharmacy Patient Instructions/Follow Up Plan of Care/Instructions/FU: 2 weeks bisi Activity as Tolerated: No Discharge Diet: Regular Diet Other Inst to Patient Follow up Appt: Make appointment for 2 weeks. Instructions: No lifting greater than 10 pounds. No strenuous activity. May shower in 24 hours, no tub bath or soaking. Use incentive spirometer at home as directed. No Smoking Skin/Wound Care: You have special glue over incision, it will fall off on it's own. Symptoms to Report: Appetite Changes, Extremity Discoloration, Numbness/Tingling, Swelling Increased, Bleeding Excessive, Eyesight Changes, Pain Increased, Urine Color Change, Constipation(Persistent), Fever over 101 degree F, Pain/Pressure in chest, Urinating Difficulty, Cough Up/Vomit Blood, Heart Beat Irreg/Pounding, Pain/Pressure in jaw, Vaginal Bleeding Increase, Cramps in feet or legs, Lightheadedness, Pain/Pressure in shoulder, Diarrhea(Persistent), Memory Changes Suddenly, Questions/Concerns, Weight gain consecutive days, Dizziness/Fainting, Nausea/Vomiting, Shortness of Breath, Weight gain over 2 pounds. If eyes or skin turn yellow notify physician. If questions or concerns contact your physician Or seek help at emergency department. DARIO AVILA DO Dec 05, 2022 10:59
[2022-12-05] MEDS ORDERED: HYDROmorphone 2 MG/ML VIAL (DILAUDID) IV ONE (11:00)
[2022-12-05] MEDS ORDERED: ONDANSETRON 4 MG/2 ML (SDV) Z0FRAN IVP PRN (11:00)
--- NOTE | 2022-12-05 11:01 | Progress Note-Post Operative ---
Post-Operative Progess Note Surgeon (s)/Business Services Representative (s) Surgeon DARIO AVILA DO Business Services Representative: na Pre-Operative Diagnosis cholelithiasis Post-Operative Diagnosis same Procedure & Operative Findings Date of Procedure 12/05/22 Procedure Performed/Findings PROCEDURE: Laparoscopic cholecystectomy with intraoperative cholangiogram. COMPLICATIONS: None. PROCEDURE: The patient was taken to the operating suite and was prepped and draped in sterile fashion. A surgical pause was performed. Just superior to the umbilicus, a 12 mm incision was made. Dissection was taken down to the fascia, which was then scored and grasped with a Xander and the abdomen was then entered. A 0 Vicryl suture was placed in a nrnslw-wd-[id number] fashion and a Yates trocar was placed and secured. Pneumoperitoneum was achieved. A 5mm trochar place in the subxyphoid and 2 in the right upper quadrant. The gallbladder was then grasped and elevated. The cystic duct, and cystic artery were then dissected out. Clip was placed on the distal portion of the cystic duct which was then partially transected. An arrow catheter was inserted into the duct. The cholangiogram was then performed. No filing defects and contrast made its way into the duodenum. Catheter removed. Clips were placed on proximal portion of the cystic duct and then the duct was then transected. Clips were placed along the proximal and distal portion of the cystic artery which was then transected. Hook cautery was used to dissect the gallbladder from the gallbladder fossa achieving hemostasis. The gallbladder was placed in an Endobag and removed through the 12 mm trocar site. The abdomen was then reinspected. Copious amounts of irrigation were used to irrigate the abdomen and there were no signs of active bleeding. Hemostasis had been achieved. The 12 mm fascial defect was then closed with 0 Vicryl suture that had been placed in a fmojov-yb-xwqdi fashion. The abdomen was then desufflated, the trocars were removed. The abdomen was then washed and dried. The skin was then closed using 4-0 Monocryl in a subcuticular fashion. The abdomen was washed and dried and Skin Affix was place over incisions. Patient tolerated the procedure well without any complications and was taken to the recovery room in stable condition. Anesthesia Type general Estimated Blood Loss Estimated blood loss (mL): minimal Specimens/Packing Specimens Removed gallbladder DARIO AVILA DO Dec 05, 2022 11:01
[2022-12-05] MEDS ORDERED: ONDANSETRON 4 MG/2 ML (SDV) Z0FRAN IVP ONE (13:15)
--- NOTE | 2022-12-05 13:32 | Anesthesia-General Post-Op ---
General Patient Condition Mental Status/LOC: Same as Preop Cardiovascular: Satisfactory Nausea/Vomiting: Absent Respiratory: Satisfactory Pain: Controlled Complications: Absent Post Op Complications Complications None Follow Up Care/Instructions Patient Instructions None needed. Anesthesia/Patient Condition Patient Condition Patient is doing well, no complaints, stable vital signs, no apparent adverse anesthesia problems. No complications reported per nursing. D/C home per [facility] [place]: Yes ARYAN ROSALES PRINTING TABLE HAND Dec 05, 2022 13:32
--- NOTE | 2022-12-05 16:17 | Diagnostic Imaging Report ---
INDICATION: Fluoroscopy during intraoperative cholangiogram. Patient has gallstones. Fluoroscopy was provided in the OR during intraoperative cholangiogram. 10 seconds of fluoroscopic time was utilized. 50 images were obtained. Contrast is noted being injected via the cystic duct remnant. Intrahepatic and extrahepatic bile ducts are opacified. No filling defects are seen. Contrast flows into the duodenum. Impression: Fluoroscopy for intraoperative cholangiogram. Dictated by: Dictated on workstation # [id number]
== END 2022-12-05 13:40 | disposition home or self-care (01) ==
LOC: SDC 07:11
PROVIDERS: ATTEND Surgery
DX: K80.10 Calculus of gallbladder with chronic cholecystitis without obstruction (principal); K21.9 Gastro-esophageal reflux disease without esophagitis; Z87.891 Personal history of nicotine dependence; Z95.5 Presence of coronary angioplasty implant and graft
CPT/HCPCS: 76000; 87081

== ENCOUNTER 2023-02-04 10:43 | Outpatient (RCR) | payer MEDICARE ==
[~2023-02-04 10:43] MED LIST changes: +TRM50T PO
[2023-02-04 11:54] LABS: HEMATOCRIT 43 % (35-52); HEMOGLOBIN 13.9 g/dL (11.5-16.0); MEAN CORPUSCULAR HEMOGLOBIN 32 pg (25-34); MEAN CORPUSCULAR HGB CONC 32 g/dL (32-36); MEAN CORPUSCULAR VOLUME 99 fL (80-99); MEAN PLATELET VOLUME 9.7 fL (9.0-12.2); PLATELET COUNT 207 10^3/uL (130-400); WHITE BLOOD COUNT 7.3 10^3/uL (4.3-11.0)
[2023-02-04 12:08] LABS: ALBUMIN 4.1 GM/DL (3.2-4.5); POTASSIUM 3.8 MMOL/L (3.6-5.0)
[2023-02-04 12:09] LABS: CALCIUM 9.3 MG/DL (8.5-10.1)
[2023-02-04 12:10] LABS: TOTAL PROTEIN 7.8 GM/DL (6.4-8.2)
[2023-02-04 12:12] LABS: BILIRUBIN,TOTAL 0.5 MG/DL (0.1-1.0)
[2023-02-04 12:14] LABS: CREATININE SERUM 1.03 MG/DL (0.60-1.30)
[2023-02-04 12:17] LABS: URIC ACID 6.2 MG/DL (2.6-7.2)
[2023-02-04 12:38] LABS: ERYTHROCYTE SEDIMENTATION RATE 25 MM/HR (0-30)
== END 2023-02-20 | disposition home or self-care (01) ==
LOC: LAB 10:43
PROVIDERS: ATTEND Internal Medicine Rheumatology
DX: M25.50 Pain in unspecified joint (principal); Z79.899 Other long term (current) drug therapy
CPT/HCPCS: 36415; 80053; 84550; 85027; 85652; 86141

== ENCOUNTER 2023-03-05 05:49 | Outpatient (CLI) | payer MEDICARE ==
[~2023-03-05] VITALS: Ht 170.2 cm; Wt 71.2 kg
[2023-03-06] MEDS ORDERED: FOLI1TAB33 PO (13:08)
== END 2023-03-06 13:15 | disposition home or self-care (01) ==
LOC: PREOP 05:49
PROVIDERS: ATTEND Surgery
DX: Z01.818 Encounter for other preprocedural examination (principal)

== ENCOUNTER 2023-05-08 12:37 | Outpatient (RCR) | payer MEDICARE ==
[~2023-05-08 12:37] MED LIST changes: +FOLI1TAB33 PO
[2023-05-08 12:52] LABS: BASOPHILS % (AUTO) 0 % (0-10); EOSINOPHILS % (AUTO) 0 % (0-10); HEMATOCRIT 42 % (35-52); HEMOGLOBIN 13.6 g/dL (11.5-16.0); LYMPHOCYTES # (AUTO) 0.5 10^3/uL (1.0-4.0); LYMPHOCYTES % (AUTO) 5 % (12-44); MEAN CORPUSCULAR HEMOGLOBIN 32 pg (25-34); MEAN CORPUSCULAR HGB CONC 33 g/dL (32-36); MEAN CORPUSCULAR VOLUME 97 fL (80-99); MONOCYTES # (AUTO) 0.1 10^3/uL (0.0-1.0); MONOCYTES % (AUTO) 1 % (0-12); NEUTROPHILS # (AUTO) 9.3 10^3/uL (1.8-7.8); NEUTROPHILS % (AUTO) 93 % (42-75); PLATELET COUNT 207 10^3/uL (130-400)
[2023-05-08 13:04] LABS: POTASSIUM 4.1 MMOL/L (3.6-5.0)
[2023-05-08 13:05] LABS: CALCIUM 9.1 MG/DL (8.5-10.1)
[2023-05-08 13:06] LABS: TOTAL PROTEIN 7.4 GM/DL (6.4-8.2)
[2023-05-08 13:08] LABS: BILIRUBIN,TOTAL 0.5 MG/DL (0.1-1.0)
[2023-05-08 13:10] LABS: CREATININE SERUM 0.97 MG/DL (0.60-1.30)
[2023-05-08 13:12] LABS: LYMPHOCYTES % (MANUAL) 5 %; MONOCYTES % (MANUAL) 2 %; NEUTROPHILS % (MANUAL) 93 %; RBC MORPH NORMAL
[2023-05-08 13:53] LABS: ERYTHROCYTE SEDIMENTATION RATE 12 MM/HR (0-30)
--- NOTE | 2023-05-08 16:37 | Diagnostic Imaging Report ---
EXAMINATION: Bilateral hand radiographs TECHNIQUE: AP, oblique, and lateral views of the bilateral hands obtained. HISTORY: Z79.899, M05.79. Rheumatoid arthritis and swelling of the right hand. COMPARISON: Hand radiograph on 02/07/2022. FINDINGS: No acute fracture or dislocation of either hand. Mild joint space narrowing and marginal osteophytes involving the 3rd digit of the right hand involving the distal and proximal interphalangeal joints. Remainder of the joint spaces are relatively maintained. The left hand demonstrates mild joint space narrowing of the distal 1st interphalangeal joint. No apparent bony erosion. No lytic or sclerotic bone lesions. IMPRESSION: No acute fracture or dislocation of either hand. 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 Dictated by: Dictated on workstation # [id number]
== END 2023-05-22 | disposition home or self-care (01) ==
LOC: LAB 12:37
PROVIDERS: ATTEND Internal Medicine Rheumatology
DX: M05.79 Rheumatoid arthritis with rheumatoid factor of multiple sites without organ or systems involvement (principal); Z79.899 Other long term (current) drug therapy
CPT/HCPCS: 36415; 80053; 85007; 85027; 85652; 86141